=== PATIENT | male | born 1955 | race Caucasian/White ===

== ENCOUNTER 2018-12-15 11:08 | Inpatient (IN) ==
[2018-12-15] MEDS ORDERED: DOPAMINE 800 MG/D5W 800 MG/250 ML IV.SOLN ONE (11:26)
[2018-12-15] MEDS ORDERED: ASPIRIN PR ONE (11:29)
[2018-12-15] MEDS ORDERED: DOPAMINE 800 MG/D5W 800 MG/250 ML IV.SOLN IV SCH ×2 (11:30→11:45)
[2018-12-15 11:34] LABS: BLOOD TYPE ARTERIAL; SAMPLE BLOOD
[2018-12-15 11:35] LABS: BE -9.5 mmoll (-3.0-3.0); METHB 0.7 % (0.0-1.5); O2(CT) 17.4 mL/dL (15.0-23.0); O2HB 97.9 % (95.0-99.0); PCO2(98.6) 65 mmHg (35-45); PO2(98.6) 355 mmHg (60-100); SAO2 100.2 % (95.0-100.0)
[2018-12-15 11:36] LABS: ALLEN TEST YES; MODALITY AMBU BAG
[2018-12-15 11:37] LABS: pH(98.6) 7.11 (7.35-7.45)
[2018-12-15 11:38] LABS: HCO3-(ACT) 17.5 mmoll (20.0-26.0)
[2018-12-15 11:39] LABS: BASO# 0.04 X1000 (0.0-0.2); BASO% 0.4 % (0.0-0.8); EOS# 0.24 X1000 (0.0-0.7); EOS% 2.6 % (0.0-10.0); HEMATOCRIT 40.8 % (42.0-52.0); HEMOGLOBIN 12.9 g/dL (14.0-18.0); IMM GRAN# 0.37 X1000 (0.0-0.04); LYMPH# 5.36 X1000 (1.2-3.4); LYMPH% 58.3 % (20.5-51.1); MCH 29.7 PG (27-31); MCHC 31.6 g/dL (33-37); MCV 93.8 FL (81-99); MONO# 0.49 X1000 (0.11-0.59); MONO% 5.3 % (1.7-9.3); MPV 10.5 FL (7.4-10.4); NEUT% 29.4 % (42.2-75.2); PLT 251 X1000 (130-400); RBC 4.35 XMIL (4.7-6.1); RDW 13.4 % (11.5-14.5)
[2018-12-15 11:48] LABS: INR 1.2; PROTIME 15.8 Seconds (11.0-16.0)
[2018-12-15 11:51] LABS: ALBUMIN 3.8 g/dL (3.5-5.0); CALCIUM 8.6 mg/dL (8.8-10.2); CREATININE 1.3 mg/dL (0.7-1.2); TOTAL BILIRUBIN 0.3 mg/dL (0.20-1.00); TOTAL PROTEIN 7.1 g/dL (6.3-8.3)
--- NOTE | 2018-12-15 13:05 | Diag Imaging Result Doc PS360 ---
EXAM: CHEST-PORTABLE HISTORY: arrest TECHNIQUE: Chest single view COMPARISON: 04/13/2018 FINDINGS: The lungs are well expanded. There are increased interstitial markings throughout both lungs believed to be fibrosis. However, these are more prominent than on the prior study. No cardiomegaly. Endotracheal tube in good position. No pleural effusions identified. IMPRESSION: 1.Endotracheal tube in good position with the tip 4 cm above the chanel 2.Pulmonary fibrosis. There has either been interval worsening or there are small underlying infiltrates. Electronically signed by Cezar Mac 12/15/2018 1:03 PM
--- NOTE | 2018-12-15 13:41 | EKG Report ---
Test Performed on : 12/15/2018 11:15:00 AM Test Reason : full arrest Blood Pressure : / mmHG Vent. Rate : 149 BPM Atrial Rate : 150 BPM P-R Int : 000 ms QRS Dur : 094 ms QT Int : 298 ms P-R-T Axes : 000 -56 071 degrees QTc Int : 469 ms Atrial fibrillation. with rapid ventricular response. Left axis deviation Nonspecific ST and T wave abnormality Abnormal ECG No previous ECGs available Unconfirmed Result
[2018-12-15 13:44] LABS: BE -3.1 mmoll (-3.0-3.0); BLOOD TYPE ARTERIAL; HCO3-(ACT) 22.5 mmoll (20.0-26.0); METHB 0.9 % (0.0-1.5); O2(CT) 18.7 mL/dL (15.0-23.0); O2HB 96.4 % (95.0-99.0); PCO2(98.6) 50 mmHg (35-45); PO2(98.6) 117 mmHg (60-100); SAMPLE BLOOD; SAO2 99.1 % (95.0-100.0); SRATE 12 BPM; THB 13.7 g/dL (11.5-17.4); TVOL 500 mL; pH(98.6) 7.29 (7.35-7.45)
[2018-12-15 14:03] LABS: ALLEN TEST YES; MODALITY VENTILATOR
[2018-12-15] MEDS ORDERED: NS 1,000 ML IV ONE (14:10)
--- NOTE | 2018-12-15 14:13 | PROVIDER DOCUMENTATION ---
This chart was entered by Franca Lopez Scribe, acting as scribe for Daniel River MD. HPI-Cardiopulmonary Arrest - General Chief Complaint: Full Arrest Stated Complaint: Full Arrest Time Seen by Provider: 12/15/18 11:08 Source: family, EMS Allergies/Adverse Reactions: Allergies Allergy/AdvReac Type Severity Reaction Status Date / Time No Known Allergies Allergy Verified 12/15/18 12:23 Home Medications: Home Medication List Medication Instructions Recorded Confirmed Last Taken Type Buprenorphine HCl/Naloxone HCl 1 each SL BID 08/30/17 12/17/18 Unknown History [Suboxone 8 mg/2 mg Sl Film] Chlordiazepoxide [Librium] 10 mg PO Q8H PRN PRN 08/30/17 12/17/18 Unknown History Citalopram [Celexa] 20 mg PO QAM 08/30/17 12/17/18 Unknown History Apixaban [Eliquis] 5 mg PO BID 12/17/18 12/17/18 Unknown History Atorvastatin Calcium 20 mg PO QHS 12/17/18 12/17/18 Unknown History Carvedilol [Coreg] 3.125 mg PO BID 12/17/18 12/17/18 Unknown History Levothyroxine Sodium [Synthroid] 50 microgm PO DAILY 12/17/18 12/17/18 Unknown History Losartan Potassium 100 mg PO DAILY 12/17/18 12/17/18 Unknown History Montelukast Sodium 10 mg PO DAILY 12/17/18 12/17/18 Unknown History - History of Present Illness-C/P Arrest Initial Comments: 63 y/o male presents to ED with cardiac arrest. Family of pt found him down and started bystander CPR. EMS reports they shocked him once, placed an IO and grisel airway, and gave epi and atropine en route to ED. EMS states they got a pulse back several times, but lost it. EMS reports down time of approximately 30 mins upon ED arrival. EMS states he was supposed to see Dr. Shabazz next week for cardiac workup. Pt has hx [place]. Pt unresponsive with CPR via MITCHELL in progress on arrival. Onset: 30 mins [employer] Reason for Code Blue?: full arrest Witnessed arrest?: Yes Noted by:: family Bystander CPR?: Yes CPR initiated before doctor arrival?: Yes Down-time before ACLS?: unknown Initial Findings: unresponsive, no pulse Treatment initiated prior to doctor arrival?: Initiated CPR/thumper, Initiated defibrillated, Initiated IV fluids, Initiated epinephrine #mg, Initiated atropine #mg, Initiated other (grisel airway) Similar Symptoms Previously?: No Recently seen or treated by another doctor?: No - Pre-hospital Treatment EMS Initial Findings:: unresponsive Pre-hospital Treatment: Initiated CPR, Initiated IV fluids, Initiated epinephrine, Initiated atropine, Initiated other (grisel airway) Review of Systems - Adult - REVIEW OF SYSTEMS - ADULT ROS:: unobtainable per condition (full arrest) Constitutional: reports: see HPI Past History - Adult - PAST MEDICAL HISTORY-ADULT Review of Records: reports: Old Records Reviewed, Nursing Assessment Review, Medications Reviewed Major Childhood Illnesses: reports: denies history Cardiovascular: reports: HTN, [place] - PRIOR SURGERIES/PROCEDURES Surgical/Procedure History: reports: none - IMMUNIZATION STATUS Childhood Immunizations: See Nurse Assessment Flu Vaccine: See Nurse Assessment - FAMILY HISTORY Family History: reviewed, not pertinent - SOCIAL HISTORY Smoking: quit less than 1 year Substance Use: none/never Alcohol Use Frequency: never Living Situation: family Physical Exam-General - PHYSICAL EXAM-ADULT Initial Vital Signs Reviewed: Yes - CONSTITUTIONAL General Appearance: other (unresponsive with CPR in progress) - EYES Eyes: PERRL/EOMI, pink conjunctivae, other (5 mm pupils bilaterally) - HEAD, EARS, NOSE, MOUTH & THROAT HENMT: normocephalic/atraumatic, moist mucous membranes - CARDIOVASCULAR Cardiovascular: negative: normal peripheral pulses (no pulse) - SKIN Integumentary: normal color, warm/dry - NEUROLOGIC Neurologic: other (unresponsive with CPR in progress) - PSYCHIATRIC Psych/Mental Status: other (unresponsive with CPR in progress) Progress - PLAN OF CARE/RESULTS Progress/Plan/Lab Results: Orders Category Date Time Status Admit [facility] Routine AdmDCTranf 12/15/18 17:12 Active Activity - Strict Bedrest ORDERED Care 12/15/18 17:12 Active Apply Mechanical Device [QM] ORDERED Care 12/15/18 17:12 Active Cardiac Monitoring DIRECTED Care 12/15/18 11:30 Completed FSBS/Accucheck Result AC + HS Care 12/17/18 09:11 Active Intake and Output-Strict ORDERED Care 12/15/18 17:12 Active Nursing- MD Consult Request ROUTINE Care 12/15/18 14:07 Completed Nursing- MD Consult Request ROUTINE Care 12/15/18 14:09 Completed Oxygen Therapy- ED Nursing DIRECTED Care 12/15/18 11:30 Completed Resuscitation Status Routine Care 12/15/18 14:11 Ordered Saline Loc NOW Care 12/15/18 11:30 Completed Update & Confirm Home Medicati ROUTINE Care 12/15/18 14:18 Completed Vital Signs Order Q 4-HR ASSESS Care 12/15/18 17:12 Active Z-Document. for Tele Applied ORDERED Care 12/15/18 17:12 Completed MD [Physician/Provider Consults] Routine Cons 12/15/18 14:05 Ordered MD [Physician/Provider Consults] Routine Cons 12/15/18 14:08 Ordered Social Service Consult Routine Cons 12/15/18 17:12 Active NPO Diet 12/15/18 17:12 Active CHEST-PORTABLE [RAD] Routine Exams 12/16/18 06:00 Completed CHEST-PORTABLE [RAD] Stat Exams 12/15/18 11:40 Completed A1C HGB W EST AVG GLUCOSE [CHEM] Stat Lab 12/15/18 11:15 Completed ABG [RESP] Routine Lab 12/15/18 11:15 Completed ABG [RESP] Routine Lab 12/15/18 13:24 Completed BLOOD CULTURE [BLDCUL] Stat Lab 12/15/18 15:37 Completed CBC WITH ELECTRONIC DIFF [HEME] Stat Lab 12/15/18 11:15 Completed CK PROFILE [SP CHEM] Stat Lab 12/15/18 11:15 Completed COMPREHENSIVE METABOLIC PANEL [CHEM] Stat Lab 12/15/18 11:15 Completed HEPATITIS PROFILE [HH] Stat Lab 12/15/18 11:15 Completed LACTATE, PLASMA [CHEM] Stat Lab 12/15/18 15:37 Completed MAGNESIUM [CHEM] Stat Lab 12/15/18 11:15 Completed PRO B-NATRIURETIC PEPTIDE Stat Lab 12/15/18 11:15 Completed PROTIME WITH INR [COAG] Stat Lab 12/15/18 11:15 Completed PTT [COAG] Stat Lab 12/15/18 11:15 Completed SPUTUM CULTURE WITH GRAM STAIN [RM] Routine Lab 12/15/18 17:25 Completed TROPONIN T Stat Lab 12/15/18 11:15 Completed TSH Stat Lab 12/15/18 11:15 Completed 0.9% Sodium Chloride Inj [Ns] 1,000 ml Med 12/15/18 14:10 Discontinued IV 100 mls/hr Albuterol 2.5MG/Ipratrop 0.5MG [Duoneb (A & A)] Med 12/15/18 15:30 Discontinued 3 ml INH RTQ4H Aspirin Med 12/15/18 11:29 Discontinued 300 mg HI NOW ONE Budesonide [Pulmicort] Med 12/15/18 19:30 Discontinued 0.5 mg INH RTBID Dopamine 800 mg/D5w Med 12/15/18 11:26 Discontinued 800 mg in 250 ml .ROUTE As directed Dopamine 800 mg/D5w Med 12/15/18 11:30 Discontinued 800 mg in 250 ml IV As Directed mls/hr Dopamine 800 mg/D5w Med 12/15/18 11:45 Discontinued 800 mg in 250 ml IV As Directed mls/hr Insulin Human Regular ([place] [Humulin R ([place])] Med 12/15/18 17:00 Discontinued See Protocol SUBQ Q4H Methylprednisolone Sod Succ [Solu-Medrol] Med 12/15/18 14:56 Discontinued 125 mg IV NOW ONE Methylprednisolone Sod Succ [Solu-Medrol] Med 12/15/18 23:00 Discontinued 40 mg IV Q8H Ondansetron [Zofran] Med 12/15/18 14:17 Discontinued 4 mg IV Q4H PRN PRN Pharmacy Order [Vancomycin IV Per Pharmacy] Med 12/15/18 15:00 Discontinued 1 each MISC DIRECTED Piperacillin/Tazobactam [Zosyn] 3.375 gm Med 12/15/18 15:00 Discontinued 0.9% Sodium Chloride Inj [Ns] 50 ml IV Q6H Propofol [Diprivan 1%] Med 12/15/18 14:30 Discontinued 1,000 mg in 100 ml IV As Directed mls/hr Vancomycin 1,500 mg Med 12/16/18 16:00 Discontinued 0.9% Sodium Chloride Inj [Ns] 250 ml IV Q24H Vancomycin 2,000 mg Med 12/15/18 16:00 Discontinued 0.9% Sodium Chloride Inj [Ns] 500 ml IV NOW Aerosol Treatments Routine Ot 12/15/18 14:17 Completed Pulse Oximetry Routine Oth 12/15/18 17:12 Completed Telemetry [OM.EQ] Routine Oth 12/15/18 17:12 Active Ventilator Order Stat Oth 12/15/18 11:24 Active EKG [EKG] Routine Ther 12/16/18 08:00 Completed EKG [EKG] Stat Ther 12/15/18 11:30 Draft Transfer/Admit Order [TRANSFER] Routine Transfer 12/15/18 14:10 Completed Epi pushed at 11:11. Pulse detected at 11:11. HR 120 and blood pressure 108/66. 11:15- HR 150 and blood pressure 192/119. 11:19- HR 114 and blood pressure 115/88. Successful intubation at 11:23. 11:27 HR 112 and blood pressure 74/44. 11:54 HR 105 and blood pressure 99/53. Dr. River spoke to Dr. Meade again at 13:55. [place] has determined he should be admitted at [facility]. Dr. River spoke to Dr. William again at 14:02. The pt will be admitted at [facility]. Result Diagrams: 12/21/18 04:10 12/21/18 04:10 - EKG 1 Time of EKG reading by physician:: 11:15 EKG Read and Signed by:: Daniel River EKG Interpretation (*Must complete 3 of following elements*): Abnormal Rate: 149 Rhythm: A fib with RVR [place]: left QRS: normal HI Interval: normal ST Wave: non-specific ST changes - XRAY 1 XRAY Study: Chest Impression: See EMR Report ([facility] - [address] , [address] [place] [id number] [facility] - [address] [place] [address] Department of Imaging Patient: CAROLANN WOODRUFFDM Date: 12/15/18MR#: [id number] : 5ADM Status: [facility]#: [id number] Age/Sex: 63/MRoom/Bed: Loc: P.ED Ordering Physician: Chepe River MD Family Physician: None,PCP Reason for Procedure: arrest Signed EXAM: CHEST-PORTABLE HISTORY: arrest TECHNIQUE: Chest single view COMPARISON: 04/13/2018 FINDINGS: The lungs are well expanded. There are increased interstitial markings throughout both lungs believed to be fibrosis. However, these are more prominent than on the prior study. No cardiomegaly. Endotracheal tube in good position. No pleural effusions identified. IMPRESSION: 1.Endotracheal tube in good position with the tip 4 cm above the chanel 2.Pulmonary fibrosis. There has either been interval worsening or there are small underlying infiltrates. Electronically signed by Cezar Mac 12/15/2018 1:03 PM 12/15/18 1303 Interpreting Physician: Cezar Mac MD Dictated Date/Time: 12/15/18 1302 cc: Daniel River MD; None,PCP) - CONSULTS/PCP/HOSPITALIST Notification #1 *Consult/PCP/Hospitalist*: Dr. Meade Time Discussed: 12:05 Reason/Comments: Cardiac arrest Consult Disposition: Admit (to [facility]) #2 Consult: Dr. William Time Discussed: 12:30 Reason/Comments: Cardiac arrest Consult Disposition: Admit #3 Consult: Transfer Center Time Discussed: 12:47 Reason/Comments: Cardiac arrest Consult Disposition: other (Hospitalist will call back) Procedures - INTUBATION Time of Intubation: 11:23 Airway Evaluation: Large/Loose Teeth Intubation Method: orotracheal Equipment: ETT, Glidescope Tube Size (cm): 7.5 Pretreated with 100% Oxygen?: Yes Breath Sounds after Intubation: equal ETT Primary Tube Confirmation: Capnometry CO2 Change, Direct Visualization, Chest Rise and Fall, Tube placement verified on XRAY Intubation Complications: no complications Vent Settings: See Respiratory Therapy Notes Procedure Comment: 23 cm at the teeth. Departure - Departure Date of Disposition Decision: 12/15/18 Time of Disposition Decision: 13:57 DIAGNOSIS: Cardiac arrest Disposition: ADMITTED INPATIENT 09 Certified Medical Emergency: Emergent Condition: Serious - Critical Care Note This patient required my direct & personal management of CC.: Yes Total Time (mins): 120 Critical Care Statement: This patient required my direct personal management to treat or rule out processes, the absence of which, could potentiallly result in sudden, clinically significant life or limb threatening deterioration. Attestation - Physician/ GUERLINE Attestation Patient care was provided by Advanced Practice Provider:: No The physician spent face to face time with patient:: Yes Advanced Practice Provider documentation review:: Supervising physician onsite and consulted in the evaluation and care of this patient. The physician did have a face to face encounter with the patient. This chart was documented by the indicated scribe, (Franca Lopez, Dorys) and accurately reflects the services I performed and decisions made by me, Daniel River MD, as attested by the provider's signature.
[2018-12-15] MEDS ORDERED: ZOFRAN IV PRN ×2 (14:17→15:37)
[2018-12-15] MEDS ORDERED: DIPRIVAN 1% 1,000 MG/100 ML BOTTLE IV SCH ×2 (14:30→16:00)
[2018-12-15] MEDS ORDERED: SOLU-MEDROL IV ONE (14:56)
[2018-12-15] MEDS ORDERED: ZOSYN 3.375 GM in NS 50 ML IV SCH ×2 (15:00→16:00)
[2018-12-15] MEDS ORDERED: VANCOMYCIN IV PER PHARMACY MISC SCH (15:00)
[2018-12-15] MEDS ORDERED: DUONEB (A & A) INH SCH ×2 (15:30→19:30)
[2018-12-15] MEDS ORDERED: HUMULIN R SUBQ SCH (15:45)
[2018-12-15] MEDS ORDERED: VANCOMYCIN 2,000 MG in NS 500 ML IV ONE (16:00)
[2018-12-15] MEDS ORDERED: CORDARONE 360 MG/D5W 360 MG/200 ML IV.SOLN IV ONE (16:16)
[2018-12-15] MEDS ORDERED: HUMULIN R (PARKWAY) SUBQ SCH (17:00)
--- NOTE | 2018-12-15 17:41 | CARDIOLOGY CONSULTATION ---
DATE: 12/15/2018 CHIEF COMPLAINT ON PRESENTATION: Patient found down in cardiac arrest at home. HISTORY OF PRESENT ILLNESS: Mr. Meraz is a 63-year-old white male with an apparent previous history of an kov-wn-wmgzshsw cardiac arrest and Takotsubo cardiomyopathy with normalization of his ejection fraction in the interim. He presented after EMS found him at home. He was found to be in atrial fibrillation and was defibrillated with conversion, but now appears to be again in atrial fibrillation at present. The patient has been ultimately intubated and is currently on pressors. He does not respond to verbal or physical stimuli. No family is available at bedside for history. PAST MEDICAL HISTORY: 1. Significant for hypertension. 2. Apparent history of substance abuse in the form of possible narcotics as well as alcohol. Again, this report is from chart review. 3. Hypertension. 4. Takotsubo cardiomyopathy with previous tgf-zv-fffpueik cardiac arrest in August 2017. At that time, he had a cardiac catheterization demonstrating minimal luminal irregularities in his coronaries. He initially had a ejection fraction in the 30% range, but prior to discharge it had recovered into the 65% range. SOCIAL AND FAMILY HISTORY: Unable to be obtained secondary to the patient currently being on the ventilator. REVIEW OF SYSTEMS: Unable to be obtained secondary to the patient currently being on the ventilator. PHYSICAL EXAMINATION: Vitals: The patient is afebrile. His heart rate is in the 110s to 120s predominantly. He appears to be in atrial fibrillation based on the monitor. His blood pressure is 98/62. Generally: He is on the ventilator. He is not responsive to physical or verbal stimuli. HEENT: Oropharynx is moist. He has poor dentition. His eye examination shows pink conjunctivae. White sclerae. Cardiovascular: He sounds to be in a tachycardic and irregular rhythm. He has no obvious murmurs. He has no S3. He has no lower extremity edema. His extremities are warm and well perfused. His chest exam has mechanical breath sounds heard throughout all lung golden. He is not breathing above the ventilator. Abdomen: Soft, nontender. He has a midline upper abdominal ventral hernia that is easily reducible. Skin: Warm and dry throughout. Neurological: He appears to have a doll's-eye-type reflex present. He is not responding to verbal or physical stimuli. Again, he is intubated. DATA: Again, his wry-ek-zohyaeam EKGs demonstrated atrial fibrillation on presentation on the monitor, which was then shocked into what appeared to be a wide-complex bradycardic rhythm with no obvious atrial activity. Since that time, his initial EKG on presentation here demonstrates a narrow-complex atrial fibrillation, rate of 149 beats per minute. Those were reviewed by me. His chest x-ray shows pulmonary fibrosis. His laboratory data demonstrates a white count of 9.2, hematocrit of 40, platelet count of 251. His initial ABG demonstrated a pH of 7.11, pCO2 of 65, pO2 of 355, lactate 5.4. Subsequently that has recovered to a pH of 7.29, pCO2 of 50, pO2 of 117. His sodium is 138, potassium 5, BUN 17, creatinine 1.3. His proBNP is 569. Normal troponin. His AST and ALT are 245 and 215 respectively with a normal TSH. ASSESSMENT: Mr. Meraz is a 63-year-old gentleman with a history of cko-jy-cvsgnzyn cardiac arrest who has had that issue previously with a previous diagnosis of a Takotsubo cardiomyopathy, with interim recovery of ejection fraction. He presented again with an bfe-hs-jpglarfn cardiac arrest. PLAN: Supportive care at this time, including pressors to maintain his blood pressure. He is on amiodarone at home. We will plan on initiating an amiodarone infusion. He previously had been arranged for a LifeVest as an outpatient at the time of his last hospitalization in August 2017. I do not have any data currently about the interim discussions regarding a potential defibrillator. Presently, I would plan on trending his cardiac enzymes, although given his previous events, I do not think this was a ischemic event. Certainly he needs a secondary prevention device at this time, and will likely plan on doing that prior to discharge. If the patient recovers, we will try to initiate oral medications in the form of beta-blockers. In addition, we will plan on checking an echo. cc: Zia Meade MD
[2018-12-15 17:43] LABS: URINE SOURCE CATH
[2018-12-15 17:47] LABS: BILIRUBIN URINE NEGATIVE (NEGATIVE); BLOOD URINE MODERATE (NEGATIVE); COLOR ORANGE; GLUCOSE URINE NEGATIVE (NEGATIVE); KETONE URINE NEGATIVE (NEGATIVE); LEUKOCYTES URINE NEGATIVE (NEGATIVE); NITRITE URINE NEGATIVE (NEGATIVE); PH URINE 5.5; PROTEIN URINE 100 mg/dL (NEGATIVE); SP GRAVITY URINE 1.017; TURBIDITY URINE TURBID (CLEAR); UROBILINOGEN URINE NORMAL (NORMAL)
--- NOTE | 2018-12-15 17:50 | Diag Imaging Result Doc PS360 ---
EXAM: CT HEAD W/O CONTRAST HISTORY: post code TECHNIQUE: CT head without contrast COMPARISON: 08/30/2017 FINDINGS: No parenchymal hemorrhage. No epidural or subdural hematoma. No subarachnoid hemorrhage. No mass identified on this noncontrasted exam. No hydrocephalus. There is a small amount of mucus in the ethmoid, maxillary, and sphenoid sinuses. There are endotracheal and nasogastric tubes. IMPRESSION: No hemorrhage. Negative brain CT without contrast. This exam was performed using automated exposure control, adjustment of mA or kV according to patient size, and/or use of iterative reconstruction technique. Electronically signed by Cezar Mac 12/15/2018 5:48 PM
[2018-12-15 17:53] LABS: UR EPITHELIAL CELLS >10 /HPF (<10); URINE BACTERIA NEGATIVE /HPF; URINE RBC 20-40 /HPF (<10); URINE WBC TNTC /HPF (<10)
[2018-12-15] MEDS ORDERED: NS 500 ML IV PRN (17:55)
[2018-12-15] MEDS ORDERED: TYLENOL PR PRN (17:55)
[2018-12-15] MEDS ORDERED: POTASSIUM CHLORIDE 60 MEQ in NS 500 ML IV PRN (18:00)
[2018-12-15] MEDS ORDERED: NITROGLYCERIN 50 MG/D5W 50 MG/250 ML IV.SOLN IV SCH ×2 (18:00→21:45)
[2018-12-15] MEDS ORDERED: DOPAMINE 800 MG/D5W 800 MG/500 ML IV.SOLN IV SCH (18:00)
[2018-12-15] MEDS ORDERED: MAGNESIUM SULFATE 2 GM in STERILE WATER INJ. 50 ML IV PRN (18:00)
[2018-12-15] MEDS ORDERED: POTASSIUM CHLORIDE 40 MEQ in NS 250 ML IV PRN (18:00)
[2018-12-15] MEDS ORDERED: FENTANYL IV ONE (18:00)
[2018-12-15] MEDS ORDERED: SODIUM PHOSPHATE 20 MMOL in NS 250 ML IV PRN (18:00)
[2018-12-15] MEDS ORDERED: SODIUM PHOSPHATE 10 MMOL in NS 250 ML IV PRN (18:00)
[2018-12-15 18:07] LABS: URINE CASTS GRANULAR PRESENT; URINE CRYSTALS NONE SEEN; URINE SMALL ROUND CELLS NONE SEEN; URINE YEAST PRESENT
[2018-12-15] MEDS: FENTANYL 1,000 MICROGM in NS 80 ML IV SCH (18:20)
[2018-12-15] MEDS: NIMBEX 80 MG in NS 160 ML IV SCH (18:28)
[2018-12-15] MEDS ORDERED: LEVOPHED 8 MG in D5 1/2 NS 250 ML IV SCH (18:30)
[2018-12-15] MEDS ORDERED: HUMULIN R IV ONE (18:30)
[2018-12-15] MEDS: ATIVAN IV SCH ×2 (18:30→21:44)
[2018-12-15] MEDS: PEPCID IV SCH (18:30)
[2018-12-15] MEDS ORDERED: D50W SYRINGE IV SCH (18:30)
[2018-12-15] MEDS: ZOSYN 3.375 GM in NS 50 ML IV SCH (18:30)
--- NOTE | 2018-12-15 18:31 | HISTORY AND PHYSICAL ---
HISTORY OF PRESENT ILLNESS: Apparently, he was talking to his sister and then he just lost consciousness, eyes rolled back, had difficulty breathing, and went into cardiac arrest. His sister did CPR until the paramedics came. I think he was down about 30 minutes. Paramedics came and they gave him 1 epinephrine and 1 atropine. He was intubated and resumed atrial fibrillation with rapid ventricular rate. Past medical history of cardiac arrhythmias. Apparently, by report, he had a cardiac arrest last year. PAST MEDICAL HISTORY: 1. Previous history of cardiac arrhythmias. 2. Hypertension. FAMILY HISTORY: Remarkable for mother demised with breast cancer at very young age. Father also demised at 52 years, had lung cancer. Nobody in the family seemed to have issues with heart problems. ALLERGIES: None known. SOCIAL HISTORY: Lives alone, was very self-sufficient, takes care of himself. Smokes a pack a day for over a [id number]-[id number] history. REVIEW OF SYSTEMS: Unable to elicit. According to family, no weight gain or loss. No fever or chills.HEENT: Unremarkable. Respiratory: No increased work of breathing or dyspnea. Cardiovascular: He has not had any recent chest pain. He was taking Suboxone at one time under [facility]. He has a history of ventricular fibrillation. The last time August 2017, he was unresponsive, CPR initiated, he had ventricular fibrillation, Emergency found to be in atrial fibrillation. At that time, he was extubated. He thought he had a pre-existing cardiomyopathy. He has an echocardiogram that was done in August 2017: 1. Mild mitral regurgitation, mild tricuspid regurgitation. 2. Pulmonary hypertension. 3. Estimated left ejection fraction 65%, without wall motion abnormalities at that time. 4. Mild left atrial enlargement. Cardiology had seen him back in December. He has a history of outpatient cardiac arrest, previous diagnosis of takotsubo cardiomyopathy with recovery in ejection fraction. He previously had been arranged for a Life Vest as an outpatient. He had a heart catheterization in August 2017, relatively low left ventricular end-diastolic pressure at that time, right dominant coronary artery described with mild luminal irregularities, no significant coronary obstruction. So, felt he had nonischemic cardiomyopathy. PHYSICAL EXAMINATION: GENERAL: He is intubated and sedated. VITAL SIGNS: Temperature is 96.1 degrees, pulse 119, respirations 32, blood pressure 100/76. EYES: Pupils are equal and round. LUNGS: Clear in all lung golden. NECK: No distended neck veins. CARDIOVASCULAR: Regular rhythm and rate without murmur or S3. ABDOMEN: Soft. SKIN: Warm and dry. EXTREMITIES: No pedal edema. LABORATORY AND DIAGNOSTIC DATA: White count 9200, hematocrit is 40, platelet count is 251,000. Sodium 138, potassium 5.0, chloride 99, BUN 17, creatinine 1.3, AST is 245, ALT is 215, calcium of 8.6, albumin of 3.8. ProTime is 15.8. Urinalysis unremarkable. Blood gas on arrival to the emergency room, pH was 7.29, pCO2 of 50, PO2 of 115, O2 saturation was 99%. This was after he was intubated and on the ventilator, 40% FiO2, PEEP of 5. Chest x-ray, endotracheal tube in good position, pulmonary fibrosis, there has been interval worsening since previous x-ray, which was 04/13/2018. Head CT without contrast, no hemorrhage, negative brain CT. ASSESSMENT AND PLAN: Cardiac arrest. History of nonischemic cardiomyopathy in the past. There is a questionable history of whether he has had ventricular tachycardia in the past. He has had a history of what they were treating for takotsubo cardiomyopathy. Last echocardiogram was on 09/08/2017. At that time, he had normal left ventricular function. We will check cardiac enzymes. I think we need to get a urine toxicology test. We will check serial CKs and troponin. We will check his thyroid and cortisol level, B12 and folate. Present rhythm is atrial fibrillation with rapid rate. His electrolytes are fairly unremarkable. Note that transaminases were a little elevated. We will put him on hypothermia protocol, ask Cardiology and Pulmonary to help follow along. Right now, he is on a dopamine drip and we will give him normal saline. He is on an amiodarone drip and we covered him empirically with some antibiotics, although he does not appear to have sepsis. cc: Jc Recinos MD
[2018-12-15] MEDS: LOVENOX SUBQ SCH (18:32)
[2018-12-15] MEDS: SODIUM CHLORIDE 0.9% INJ SCH (18:34)
[2018-12-15] MEDS: HUMULIN R 100 UNIT in NS 100 ML IV SCH (18:45)
[2018-12-15] MEDS: LACRI-LUBE OPH OINT BOTH EYES SCH (18:53)
[2018-12-15 19:04] LABS: UR AMPHETAMINES QUAL NONE DETECTED (NONE DETECT); UR BARBITUATES QUAL NONE DETECTED (NONE DETECT); UR BENZODIAZEPIN QUAL PRESUMPTIVE POSITIVE (NONE DETECT); UR CANNABINOIDS QUAL NONE DETECTED (NONE DETECT); UR COCAINE QUAL NONE DETECTED (NONE DETECT); UR METHADONE QUAL NONE DETECTED (NONE DETECT); UR OPIATES QUAL NONE DETECTED (NONE DETECT); UR OXYCODONE QUAL NONE DETECTED (NONE DETECT); UR PCP QUAL NONE DETECTED (NONE DETECT)
[2018-12-15 19:13] LABS: FREE T4 1.66 ng/dL (0.93-1.70); TSH 0.71 uIUmL (0.27-4.20)
--- NOTE | 2018-12-15 19:13 | Diag Imaging Result Doc PS360 ---
EXAM: CHEST-1 VIEW HISTORY: ETT placement TECHNIQUE: Portable chest single view COMPARISON: 12:05 PM FINDINGS: Endotracheal tube is unchanged and remains in good position. There is currently a nasogastric tube with the tip near the gastroesophageal junction. It should be advanced several centimeters. Interstitial markings in the lungs are slightly less pronounced. IMPRESSION: 1.Endotracheal tube remains in good position 2.Nasogastric tube near the gastroesophageal junction. This should be advanced. Electronically signed by Cezar Mac 12/15/2018 7:10 PM
--- NOTE | 2018-12-15 19:27 | HISTORY AND PHYSICAL ---
PRIMARY CARE PROVIDER: [facility]. HISTORY OF PRESENT ILLNESS: Mr. Moreno Meraz is a 63-year-old male with a medical history of having cardiac arrest August 2017. Also history of atrial fibrillation, hypertension, tobacco abuse, alcohol dependence, and chronic pain syndrome treatment with a history of suspected ventricular arrhythmia and nonischemic cardiomyopathy. He is now here after experiencing cardiac arrest once again. Apparently, his sister was in front of him while he was by his vehicle. He looked funny. He passed out. She could not wake him and 911 was called. There was at least 20 minutes of CPR, including non CPR time frame. Neurologically, he is withdrawing to pain, but essentially unresponsive otherwise. His pupils are equal and reactive. He has a gag. He is in atrial fibrillation with RVR. Rates 1 teens. Blood pressure stable on dopamine that was started in the ER. We are reviewing his last admission. He was advised to remain hospitalized over the weekend until he got a LifeVest, but apparently I do not think this happened. I do not think he was able to get a LifeVest. Cardiology, Dr. Meade, is already aware of the patient. [facility] currently is refusing the patient, and we will transfer to [facility]. PAST MEDICAL HISTORY: 1. Paroxysmal atrial fibrillation. 2. Nonischemic cardiomyopathy with an ejection fraction of 20%. 3. Hypertension. 4. Chronic pain syndrome. He used to be on Suboxone. SURGICAL HISTORY: Unknown. SOCIAL HISTORY: Obtained from old medical records. Apparently, he lives by himself. He was self sufficient. He takes care of himself. Smokes about a pack a day for at least 30 years or plus. He has a daughter who does not live with him. He has a sister who checks on him on a regular basis. FAMILY HISTORY: Also obtained from old medical records is remarkable for mother's with breast cancer at a young age. Father at 52 with lung cancer. ALLERGIES: No known drug allergies. HOME MEDICATIONS: Not verified, but what is listed from 2018 is Librium, Celexa, Suboxone, aspirin, amiodarone, digoxin, Diovan, potassium chloride, Lasix, and metoprolol. REVIEW OF SYSTEMS: Unable to obtain. PHYSICAL EXAMINATION: VITAL SIGNS: Temperature 96.2 degrees, heart rate 119, respiratory rate was in the 40s on mechanical ventilation, blood pressure is 98/62, and O2 saturation 100% again on mechanical ventilation. GENERAL: Mr. Moreno Meraz is a 63-year-old male. He is unresponsive at this time. NECK: Trachea midline. HEENT: Atraumatic, normocephalic. Pupils are equal and reactive, but they are rolled back in his head. Sclerae is red and irritated from being dry. He is orally intubated with equal expansion of the chest on mechanical ventilation and oropharyngeal area is dry. CARDIOVASCULAR: Irregularly irregular. Tachycardic rate and rhythm. No rubs, gallops, or murmurs. Trace lower extremity edema. Plus 2 dorsalis and radial pulses. Unable to assess for JVD. He is completely flat. Negative for carotid bruits. PULMONARY: Coarse throughout. Decreased in the bases. Mechanically ventilated. Trying to breathe over the ventilator. O2 saturations 100%. GASTROINTESTINAL: Left nare NG tube to low intermittent suction. There are at least 300+ gastric secretions that are glass to brown in color. No signs of bleeding on that. It is to low suction. He has got positive bowel sounds x4. It is nondistended. EXTREMITIES: Withdraws to pain. Unable to assess for strength or range of motion. NEUROLOGIC: Unresponsive. Pupils are equal and reactive, but eyes are rolled back in head. He is unable to follow commands as he is unresponsive. There is a positive gag, positive corneal reflex, and withdraws to pain. SKIN: Warm, dry, intact. LABORATORY DATA: White blood cells 9000, hemoglobin 12, hematocrit 40, platelet count 251,000. INR is 1.20. PTT is 37. ABGs: First set prior to intubation: pH 7.11, pCO2 of 65, pO2 of 355, bicarb 17, base excess -9.5 with a sat of 97%. Lactate was up to 5.4. A repeat after ventilation is pH 7.29, pCO2 is 50, pO2 is 117, bicarb 22, base excess -3, saturation 96% with a lactate of 1.4. This is on mechanical ventilation mode AC, rate of 12, 40% tidal volume 500, PEEP of 5. Sodium 138, potassium 5.0, BUN 17, creatinine is 1.3, glucose 250, calcium 8.6, magnesium 2.6, bilirubin 0.30, AST 245. CK is 109. Troponin less than 0.01. ProBNP is 569. Albumin 3.8. TSH 2.97. IMAGING: Chest x-ray: Endotracheal tube in good position with tip 4 cm above the chanel. Pulmonary fibrosis has worsened and there are small underlying infiltrates. EKG: Atrial fibrillation with a RVR rate of 149. ASSESSMENT AND PLAN: 1. Cardiac arrest with history of nonischemic cardiomyopathy and atrial fibrillation with rapid ventricular response along with a history of ventricular arrhythmia and history of cardiac arrest August 2017. At that time was advised to have a LifeVest placed so he could have a defibrillator, but this never happened. Now he is presenting with cardiac arrest once again. He has been started on IV fluids and dopamine for blood pressure control. He is still in atrial fibrillation with rapid ventricular response, and we will consult Cardiology, Dr. Meade, who is already aware of the patient. 2. Acute hypoxemic hypercarbic respiratory failure secondary to cardiac arrest. Now with mechanical ventilation. Nebulizers ordered. We will add IV steroids, consult Pulmonary, and repeat an ABG and chest x-ray for in the morning. 3. Chronic obstructive pulmonary disease exacerbation. Please see previous number. 4. Cardiogenic versus septic shock with lactic acidosis. Currently on dopamine. The acidosis improved after mechanical ventilation. So we will continue with IV fluid hydration and broad- spectrum antibiotics. Cultures obtained. Urinalysis ordered. There are infiltrates on the x- ray, so there could be some pneumonia, likely aspiration pneumonia. 5. History of tobacco abuse. 6. History of alcohol abuse. 7. Nonischemic cardiomyopathy with a history of ejection fraction of 20%. We will order an echocardiogram. Cardiology is following. 8. Transaminitis. We will order hepatitis panel. He does have a history of alcohol abuse. 9. Hyperglycemia. Likely reactive to cardiac arrest, but we will order a hemoglobin A1c. We will do pattern blood glucoses with the sliding scale insulin as he will be on steroids which may drive up his blood glucose as well. 10. Currently unresponsive and encephalopathic secondary to cardiac arrest with risk of anoxic injury. Head CT has been ordered. We will likely need an MRI to evaluate for cerebral swelling secondary to hypoxia. 11. History of hypertension, but he is hypotensive and he is on dopamine at this time. That was initiated in the emergency department. Could consider changing to a different pressor since the patient has a history of atrial fibrillation. Dictated by VONDA Lauren for Mahesh Rao MD Addendum: Patine seen and examined by myself. Agree with VONDA note. It reflects my assessment and plan. Patient is being admitted to hospital for cardiac arrest. Hypothermia protocol ongoing. Will transfer him to [facility] and cardiology and pulmonary will be consulted. Prognosis is poor cc: VONDA Lauren MD [facility]
[2018-12-15] MEDS ORDERED: PULMICORT INH SCH ×2 (19:30)
[2018-12-15 19:39] LABS: CALCIUM 8.2 mg/dL (8.8-10.2); CREATININE 1.3 mg/dL (0.7-1.2); POTASSIUM 4.3 mmol/L (3.5-5.1)
[2018-12-15 20:02] LABS: ALLEN TEST YES; BE -5.4 mmoll (-3.0-3.0); BLOOD TYPE ARTERIAL; HCO3-(ACT) 20.7 mmoll (20.0-26.0); METHB 1.6 % (0.0-1.5); O2(CT) 19.1 mL/dL (15.0-23.0); PO2(98.6) 282 mmHg (60-100); SAMPLE BLOOD; SAO2 99.7 % (95.0-100.0); SRATE 12 BPM; THB 13.5 g/dL (11.5-17.4); TVOL 500 mL
[2018-12-15 20:04] LABS: MODALITY VENTILATOR; PCO2(98.6) 74 mmHg (35-45); pH(98.6) 7.14 (7.35-7.45)
[2018-12-15 20:07] LABS: CK INDEX 4.9 (0.0-2.5); CK-MB 21.14 ng/mL (0.0-5.0)
[2018-12-15] MEDS ORDERED: CORDARONE 540 MG in D5W 289.2 ML IV ONE (22:16)
[2018-12-15] MEDS ORDERED: SOLU-MEDROL IV SCH (23:00)
[2018-12-15 23:44] LABS: INR 1.15; PROTIME 14.9 Seconds (11.0-16.0)
[2018-12-15 23:48] LABS: BASO# 0.02 X1000 (0.0-0.2); BASO% 0.1 % (0.0-0.8); EOS# 0.01 X1000 (0.0-0.7); HEMATOCRIT 40.8 % (42.0-52.0); HEMOGLOBIN 13.3 g/dL (14.0-18.0); IMM GRAN# 0.08 X1000 (0.0-0.04); IMM GRAN% 0.3 % (0.0-0.5); LYMPH# 0.57 X1000 (1.2-3.4); LYMPH% 2.3 % (20.5-51.1); MAGNESIUM 1.8 mg/dL (1.5-2.7); MCH 29.6 PG (27-31); MCHC 32.6 g/dL (33-37); MCV 90.7 FL (81-99); MONO# 1.04 X1000 (0.11-0.59); MONO% 4.2 % (1.7-9.3); MPV 10.4 FL (7.4-10.4); NEUT# 22.87 X1000 (1.4-6.5); NEUT% 93.1 % (42.2-75.2); PHOSPHORUS 2.7 mg/dL (2.7-4.5); PLT 298 X1000 (130-400); WBC 24.59 X1000 (4.8-10.8)
[2018-12-16] MEDS: ZOSYN 3.375 GM in NS 50 ML IV SCH ×4 (00:19→17:15)
[2018-12-16] MEDS: LACRI-LUBE OPH OINT BOTH EYES SCH ×4 (00:20→17:01)
[2018-12-16 00:39] LABS: AGAP 17; BUN 25 mg/dL (8-22); CALCIUM 7.7 mg/dL (8.8-10.2); CHLORIDE 103 mmol/L (98-107); COSMO 283; CREATININE 1.1 mg/dL (0.7-1.2); ESTIMATED GFR > 60; GLUCOSE 157 mg/dL (70-104); POTASSIUM 3.6 mmol/L (3.5-5.1); SODIUM 138 mmol/L (136-145); TCO2 18 mmol/L (25-35)
[2018-12-16 00:41] LABS: LYMPHS 2 % (21-51); MONO 1 % (1-9); SEGS 95 % (42-75)
[2018-12-16] MEDS: NIMBEX 80 MG in NS 160 ML IV SCH ×3 (01:30→19:56)
[2018-12-16] MEDS: SOLU-MEDROL IV SCH ×3 (02:04→17:01)
[2018-12-16] MEDS: ATIVAN IV SCH ×6 (02:04→22:13)
[2018-12-16 02:57] LABS: BLOOD TYPE ARTERIAL; SAMPLE BLOOD
[2018-12-16 02:58] LABS: ALLEN TEST YES; HCO3-(ACT) 17.8 mmoll (20.0-26.0); METHB 0.9 % (0.0-1.5); O2(CT) 18.1 mL/dL (15.0-23.0); O2HB 93.3 % (95.0-99.0); PO2(98.6) 77 mmHg (60-100); SAO2 95.8 % (95.0-100.0); SRATE 14 BPM; THB 13.8 g/dL (11.5-17.4); TVOL 550 mL
[2018-12-16 02:59] LABS: MODALITY VENTILATOR; PCO2(98.6) 63 mmHg (35-45); pH(98.6) 7.13 (7.35-7.45)
[2018-12-16 04:07] LABS: CK INDEX 4.8 (0.0-2.5); CK-MB 21.47 ng/mL (0.0-5.0)
[2018-12-16] MEDS: DUONEB (A & A) INH SCH ×6 (04:59→23:02)
[2018-12-16] MEDS: PEPCID IV SCH ×2 (05:30→17:01)
[2018-12-16] MEDS: LOVENOX SUBQ SCH ×2 (05:30→17:01)
[2018-12-16] MEDS: SODIUM CHLORIDE 0.9% INJ SCH ×2 (05:31→17:01)
--- NOTE | 2018-12-16 05:54 | Diag Imaging Result Doc PS360 ---
EXAM: CHEST-PORTABLE HISTORY: resp failure TECHNIQUE: Portable chest single view COMPARISON: 12/15/2018 FINDINGS: The nasogastric tube has been advanced since the prior study. Endotracheal tube in good position. There are increased interstitial markings throughout both lungs. These are slightly more prominent than on the prior study. No cardiomegaly. IMPRESSION: 1.Nasogastric tube has been advanced 2.Worsening infiltrates Electronically signed by Cezar Mac 12/16/2018 5:52 AM
[2018-12-16 07:02] LABS: AGAP 16; BUN 25 mg/dL (8-22); CALCIUM 7.9 mg/dL (8.8-10.2); CHLORIDE 102 mmol/L (98-107); COSMO 283; CREATININE 1.1 mg/dL (0.7-1.2); ESTIMATED GFR > 60; GLUCOSE 159 mg/dL (70-104); POTASSIUM 3.4 mmol/L (3.5-5.1); SODIUM 138 mmol/L (136-145); TCO2 20 mmol/L (25-35)
--- NOTE | 2018-12-16 07:39 | PROGRESS NOTE ---
DATE: 12/16/2018 SUBJECTIVE: Mr. Meraz is intubated. Apparently, blood pressure came up. In fact, he was hypertensive. Put him on a nitroglycerin drip for a time. OBJECTIVE: He is afebrile. Temperature 93.8 degrees, pulse 101, respirations 14, blood pressure 126/68. Pupils are equal. His lungs are clear anterolateral. Cardiovascular Examination: Regular rhythm and rate without murmur or S3. Abdomen is soft. Skin is warm and dry. Blood sugar 156, 144. His chest x-ray from this morning, nasogastric tube has been advanced, worsening infiltrates. There are increased interstitial markings throughout both lungs, slightly more prominent than yesterday. ASSESSMENT AND PLAN: History of nonischemic cardiomyopathy in the past. He has had cardiorespiratory arrest a little over a year ago, similar scenario. I am not sure whether this was truly ventricular tachycardia or atrial fibrillation with wide complex but he had been thought to have Takotsubo cardiomyopathy in the past. Of course, we will repeat an echocardiogram to look at his left ventricular function. Cardiology to follow urine. Urine toxicology just showed benzodiazepines. His lab from yesterday, white count was elevated at 24,590, hematocrit 40, platelet count 298,000. His troponin was 0.029, his CK was 450. We will check another troponin and CK this morning. Pulmonary and cardiology involved. Dr. Meade has seen him. Continue supportive care including pressors to maintain blood pressure when needed. He is on amiodarone at home so he is on an amiodarone infusion at this time. He was previously arranged for a LifeVest as an outpatient at the time of the last hospitalization, August 2017. cc: Jc Recinos MD
[2018-12-16 09:13] LABS: ALLEN TEST YES; BE -8.9 mmoll (-3.0-3.0); BLOOD TYPE ARTERIAL; HCO3-(ACT) 17.9 mmoll (20.0-26.0); METHB 1.2 % (0.0-1.5); O2(CT) 18.3 mL/dL (15.0-23.0); O2HB 94.1 % (95.0-99.0); PO2(98.6) 77 mmHg (60-100); SAMPLE BLOOD; SAO2 96.6 % (95.0-100.0); SRATE 14 BPM; THB 13.8 g/dL (11.5-17.4); TVOL 550 mL
[2018-12-16 09:16] LABS: pH(98.6) 7.12 (7.35-7.45)
[2018-12-16 09:17] LABS: MODALITY VENTILATOR; PCO2(98.6) 66 mmHg (35-45)
--- NOTE | 2018-12-16 09:49 | EKG Report ---
Test Performed on : 12/16/2018 07:00:41 AM Test Reason : chest pain Blood Pressure : / mmHG Vent. Rate : 096 BPM Atrial Rate : 095 BPM P-R Int : 000 ms QRS Dur : 088 ms QT Int : 334 ms P-R-T Axes : 000 031 020 degrees QTc Int : 421 ms Atrial fibrillation. Nonspecific T wave abnormality Abnormal ECG When compared with ECG of 07-SEP-2017 13:52, Previous ECG has undetermined rhythm, needs review ST no longer depressed in Anterior leads T wave inversion no longer evident in Anterolateral leads Confirmed by Kiet CAMPOVERDE, Lesli Villela ([id number]) on 12/17/2018 4:10:59 PM
--- NOTE | 2018-12-16 10:09 | EKG Report ---
Test Performed on : 12/15/2018 4:52:03 PM Test Reason : afib Blood Pressure : / mmHG Vent. Rate : 107 BPM Atrial Rate : 150 BPM P-R Int : 000 ms QRS Dur : 084 ms QT Int : 358 ms P-R-T Axes : 000 050 065 degrees QTc Int : 477 ms Atrial fibrillation. with rapid ventricular response. Abnormal ECG When compared with ECG of 15-DEC-2018 11:15, (Unconfirmed) QRS axis shifted right T wave inversion no longer evident in Lateral leads Confirmed by Lesli Santa MD ([id number]) on 12/17/2018 4:10:42 PM
[2018-12-16 11:14] LABS: BASO# 0.01 X1000 (0.0-0.2); HEMATOCRIT 41.1 % (42.0-52.0); HEMOGLOBIN 13.3 g/dL (14.0-18.0); IMM GRAN# 0.07 X1000 (0.0-0.04); IMM GRAN% 0.3 % (0.0-0.5); LYMPH# 0.86 X1000 (1.2-3.4); LYMPH% 3.4 % (20.5-51.1); MCH 29.4 PG (27-31); MCHC 32.4 g/dL (33-37); MCV 90.7 FL (81-99); MONO# 0.87 X1000 (0.11-0.59); MONO% 3.4 % (1.7-9.3); MPV 10.1 FL (7.4-10.4); NEUT# 23.41 X1000 (1.4-6.5); NEUT% 92.9 % (42.2-75.2); PLT 276 X1000 (130-400); RBC 4.53 XMIL (4.7-6.1); RDW 13.2 % (11.5-14.5); WBC 25.22 X1000 (4.8-10.8)
[2018-12-16 11:16] LABS: INR 1.17; PROTIME 15.1 Seconds (11.0-16.0)
[2018-12-16 11:29] LABS: MAGNESIUM 1.6 mg/dL (1.5-2.7); PHOSPHORUS 3.1 mg/dL (2.7-4.5)
[2018-12-16 11:42] LABS: BANDS 2 % (0-1); LYMPHS 6 % (21-51); MONO 2 % (1-9); SEGS 90 % (42-75)
[2018-12-16 11:44] LABS: AGAP 15; BUN 26 mg/dL (8-22); CALCIUM 7.6 mg/dL (8.8-10.2); CHLORIDE 105 mmol/L (98-107); COSMO 282; ESTIMATED GFR > 60; GLUCOSE 128 mg/dL (70-104); POTASSIUM 4.3 mmol/L (3.5-5.1); SODIUM 138 mmol/L (136-145); TCO2 18 mmol/L (25-35)
[2018-12-16] MEDS: FENTANYL 1,000 MICROGM in NS 80 ML IV SCH (13:00)
[2018-12-16 13:54] LABS: ALLEN TEST YES; BE -5.8 mmoll (-3.0-3.0); BLOOD TYPE ARTERIAL; HCO3-(ACT) 20.3 mmoll (20.0-26.0); METHB 1.4 % (0.0-1.5); O2(CT) 17.9 mL/dL (15.0-23.0); O2HB 93.7 % (95.0-99.0); PO2(98.6) 73 mmHg (60-100); SAMPLE BLOOD; SAO2 96.4 % (95.0-100.0); SRATE 16 BPM; THB 13.6 g/dL (11.5-17.4); TVOL 600 mL; pH(98.6) 7.23 (7.35-7.45)
--- NOTE | 2018-12-16 13:56 | CARDIOLOGY PROGRESS NOTE ---
DATE: 12/16/2018 SUBJECTIVE: Mr. Meraz is currently undergoing cooling protocol. He is sedated, paralyzed on the ventilator. OBJECTIVE: Vital Signs: Afebrile. He is currently in the hypothermia protocol. Rate is 90. Blood pressure 140/78. Telemetry currently seems to show atrial fibrillation. General: No acute distress. Cardiovascular: He is in an irregularly irregular rhythm. He has no murmurs he has no S3. No lower extremity edema. Chest: Sounds relatively clear. He has no increased work of breathing. ABDOMEN: Soft and nontender. PERTINENT LABORATORY DATA: His white count is 25, hematocrit is 41, his platelet count is 276,000. His INR is 1.1. His ABG was reviewed. He continues to be quite acidotic, lactate 2.7. His sodium is 138, potassium 3.4, BUN 25, creatinine is 1.1. His troponin is negative. ASSESSMENT: Mr. Meraz is a 63-year-old gentleman who presented after a VFib arrest at home. He has a history of this previously around 1 year ago. PLAN: We will continue him on the amiodarone infusion. His echocardiogram is currently pending. I would currently recommend supportive care as currently being undertaken for this patient. We will follow up on his echocardiogram. cc: Zia Meade MD
[2018-12-16 14:06] LABS: MODALITY VENTILATOR; PCO2(98.6) 53 mmHg (35-45)
[2018-12-16] MEDS: CORDARONE 360 MG/D5W 360 MG/200 ML IV.SOLN IV SCH (15:24)
[2018-12-16] MEDS: VANCOMYCIN 1,500 MG in NS 250 ML IV SCH (15:36)
--- NOTE | 2018-12-16 15:56 | ECHO REPORT ---
ORDER DATE: 12/15/2018 INDICATION: Cardiac arrest. FINDINGS: 1. Right atrium appears normal in size at 2.9 cm. 2. Mild tricuspid regurgitation. RV systolic pressure of 53. 3. Normal RV size and systolic function. 4. No significant pulmonic insufficiency. 5. Normal left atrial size with a volume index of 25. 6. No mitral valve prolapse. Mild mitral regurgitation. 7. Normal LV size, end-diastolic dimension of 4 cm. Poor visualization of endocardial borders but I do not see any clear evidence of left ventricular hypertrophy. Normal LV systolic function. Estimated EF of 60 to 65% with normal appearing wall motion. 8. Aortic valve opens well. No evidence of stenosis or insufficiency. 9. Aorta appears normal in visualized segments. 10. No pericardial effusion seen. cc: Zia Meade MD
[2018-12-16] MEDS ORDERED: VANCOMYCIN 1,500 MG in NS 250 ML IV SCH (16:00)
[2018-12-16 18:54] LABS: AGAP 12; BUN 26 mg/dL (8-22); CALCIUM 7.7 mg/dL (8.8-10.2); CHLORIDE 105 mmol/L (98-107); COSMO 280; CREATININE 0.9 mg/dL (0.7-1.2); ESTIMATED GFR > 60; GLUCOSE 95 mg/dL (70-104); POTASSIUM 4.4 mmol/L (3.5-5.1); SODIUM 138 mmol/L (136-145); TCO2 21 mmol/L (25-35)
[2018-12-16] MEDS: HUMULIN R 100 UNIT in NS 100 ML IV SCH (19:55)
[2018-12-16 20:13] LABS: ALLEN TEST YES; BE -6.6 mmoll (-3.0-3.0); BLOOD TYPE ARTERIAL; HCO3-(ACT) 19.7 mmoll (20.0-26.0); O2(CT) 18.4 mL/dL (15.0-23.0); O2HB 95.8 % (95.0-99.0); PCO2(98.6) 49 mmHg (35-45); PO2(98.6) 85 mmHg (60-100); SAMPLE BLOOD; SAO2 98.4 % (95.0-100.0); SRATE 16 BPM; THB 13.6 g/dL (11.5-17.4); TVOL 600 mL; pH(98.6) 7.24 (7.35-7.45)
[2018-12-16 20:14] LABS: MODALITY VENTILATOR
--- NOTE | 2018-12-16 20:19 | CONSULTATION ---
DATE OF CONSULTATION: 12/16/2018 CHIEF COMPLAINT: Cardiac arrest. HISTORY OF PRESENT ILLNESS: This is a 63-year-old, male who apparently was talking with his sister and loss consciousness. Eyes rolled back, and he developed difficulty breathing and on went into cardiac arrest. His sister started CPR until paramedics arrived. When paramedics arrived, they administered 1 of epinephrine and 1 atropine and intubated the patient. He has a past medical history of cardiac arrhythmias. PAST MEDICAL HISTORY: Hypertension. History of cardiac arrhythmias. Also, COPD. FAMILY HISTORY: Breast cancer, mother. Lung cancer, father. ALLERGIES: No known drug allergies. SOCIAL HISTORY: He lives alone. Smokes a pack of cigarettes per day for 30 years. REVIEW OF SYSTEMS: A 10-point review of systems was obtained and the pertinent are listed in the HPI, otherwise noncontributory. DIAGNOSTIC DATA: Chest x-ray increased interstitial markings throughout both lungs believed to be fibrosis and small underlying infiltrates. LABORATORY DATA: White blood cells 25.22, red blood cells 4.53, hemoglobin 13.3, hematocrit 41.1. PH 7.33, pCO2 63, PO2 73, HC03 20.3. Base excess -5.8, oxyhemoglobin 93.7. Sodium 138, potassium 3.4, chloride 102, carbon dioxide 20, BUN 25, creatinine 1.1, glucose 151, CK-MB 21.47, troponin T 0.029. PAST SURGICAL HISTORY: Unknown. PHYSICAL EXAM: Vital Signs: Temperature 96.2, heart rate 119, respiratory rate 16. General: This is a 63-year-old, male, on ventilatory support at the present time. HEENT: Head is atraumatic, normocephalic. Trachea midline. Endotracheal tube in place. Cardiovascular: A regular rhythm and rate without murmur. Abdomen: Soft. Respiratory: Lungs are clear to auscultation. Skin: Warm and dry. Extremities: Without edema or cyanosis. ASSESSMENT AND PLAN: 1. Cardiac arrest. Cardiology is following. 2. Acute hypoxic respiratory failure secondary to a cardiac arrest. Continue mechanical ventilation. We will monitor with ABGs. 3. Chronic obstructive pulmonary disease/pulmonary fibrosis. Continue steroids and bronchodilators. to go up above the lungs. 4. Hyperglycemia. Continue to monitor with fingerstick blood glucose and sliding scale. 5. Continue gastrointestinal and deep vein thrombosis prophylaxis. Thank you for the courtesy of this consult. Dictated by VONDA Sen for Laurent Zapien MD cc: VONDA Sen MD
[2018-12-16 23:02] LABS: BASO# 0.01 X1000 (0.0-0.2); HEMATOCRIT 39.3 % (42.0-52.0); HEMOGLOBIN 12.9 g/dL (14.0-18.0); IMM GRAN# 0.18 X1000 (0.0-0.04); IMM GRAN% 0.5 % (0.0-0.5); LYMPH# 1.33 X1000 (1.2-3.4); LYMPH% 3.9 % (20.5-51.1); MCH 29.6 PG (27-31); MCHC 32.8 g/dL (33-37); MCV 90.1 FL (81-99); MONO# 1.48 X1000 (0.11-0.59); MONO% 4.3 % (1.7-9.3); MPV 10.3 FL (7.4-10.4); NEUT# 31.24 X1000 (1.4-6.5); NEUT% 91.3 % (42.2-75.2); PLT 235 X1000 (130-400); RBC 4.36 XMIL (4.7-6.1); WBC 34.24 X1000 (4.8-10.8)
[2018-12-16 23:07] LABS: INR 1.2; PROTIME 15.3 Seconds (11.0-16.0)
[2018-12-16 23:25] LABS: MAGNESIUM 2.2 mg/dL (1.5-2.7); PHOSPHORUS 3.4 mg/dL (2.7-4.5)
[2018-12-16] MEDS ORDERED: LANOXIN IV ONE (23:34)
[2018-12-16 23:45] LABS: AGAP 19; BUN 27 mg/dL (8-22); CHLORIDE 108 mmol/L (98-107); COSMO 290; CREATININE 0.9 mg/dL (0.7-1.2); ESTIMATED GFR > 60; GLUCOSE 104 mg/dL (70-104); POTASSIUM 4.7 mmol/L (3.5-5.1); SODIUM 143 mmol/L (136-145); TCO2 16 mmol/L (25-35)
[2018-12-17] MEDS: LACRI-LUBE OPH OINT BOTH EYES SCH (00:13)
[2018-12-17] MEDS: ZOSYN 3.375 GM in NS 50 ML IV SCH ×4 (00:13→17:58)
[2018-12-17 00:50] LABS: LYMPHS 2 % (21-51); MONO 3 % (1-9); SEGS 95 % (42-75)
[2018-12-17] MEDS ORDERED: ZOFRAN IV PRN (02:23)
[2018-12-17] MEDS: SOLU-MEDROL IV SCH ×3 (02:29→17:57)
[2018-12-17] MEDS: CORDARONE 360 MG/D5W 360 MG/200 ML IV.SOLN IV SCH ×3 (02:29→15:09)
[2018-12-17] MEDS: ATIVAN IV PRN ×2 (02:29→05:42)
[2018-12-17 03:10] LABS: ALLEN TEST YES; BE -4.4 mmoll (-3.0-3.0); BLOOD TYPE ARTERIAL; HCO3-(ACT) 21.4 mmoll (20.0-26.0); METHB 1.6 % (0.0-1.5); O2(CT) 17.2 mL/dL (15.0-23.0); O2HB 94.5 % (95.0-99.0); PCO2(98.6) 39 mmHg (35-45); PO2(98.6) 71 mmHg (60-100); SAMPLE BLOOD; SAO2 97.5 % (95.0-100.0); SRATE 14 BPM; THB 12.9 g/dL (11.5-17.4); TVOL 600 mL; pH(98.6) 7.34 (7.35-7.45)
[2018-12-17 03:11] LABS: MODALITY VENTILATOR
[2018-12-17] MEDS: DUONEB (A & A) INH SCH ×6 (03:37→22:41)
[2018-12-17] MEDS: LOVENOX SUBQ SCH ×2 (05:44→17:56)
[2018-12-17] MEDS: PEPCID IV SCH ×2 (05:44→18:06)
[2018-12-17] MEDS: SODIUM CHLORIDE 0.9% INJ SCH ×2 (05:45→18:06)
[2018-12-17 07:01] LABS: AGAP 15; BUN 29 mg/dL (8-22); CALCIUM 8.3 mg/dL (8.8-10.2); CHLORIDE 103 mmol/L (98-107); COSMO 281; CREATININE 1.1 mg/dL (0.7-1.2); ESTIMATED GFR > 60; GLUCOSE 123 mg/dL (70-104); POTASSIUM 5.3 mmol/L (3.5-5.1); SODIUM 137 mmol/L (136-145); TCO2 19 mmol/L (25-35)
--- NOTE | 2018-12-17 07:13 | Diag Imaging Result Doc PS360 ---
EXAM: CHEST-PORTABLE INDICATION: Hypothermia protocol TECHNIQUE: One view COMPARISON: 12/16/2018 FINDINGS: Support tubes and lines are in stable positions. The interstitial infiltrates seen previously are approximately stable. No new consolidation is identified. Cardiac silhouette is stable. IMPRESSION: Stable chest. Electronically signed by Joao Arechiga 12/17/2018 7:10 AM
[2018-12-17 08:27] LABS: ALLEN TEST YES; BE -4.1 mmoll (-3.0-3.0); BLOOD TYPE ARTERIAL; HCO3-(ACT) 21.7 mmoll (20.0-26.0); O2(CT) 16.6 mL/dL (15.0-23.0); O2HB 97.4 % (95.0-99.0); PCO2(98.6) 41 mmHg (35-45); PO2(98.6) 112 mmHg (60-100); SAMPLE BLOOD; SAO2 100.6 % (95.0-100.0); SRATE 16 BPM; TVOL 600 mL; pH(98.6) 7.33 (7.35-7.45)
[2018-12-17 08:28] LABS: MODALITY VENTILATOR
--- NOTE | 2018-12-17 08:49 | CARDIOLOGY PROGRESS NOTE ---
DATE: 12/17/2018 SUBJECTIVE: Mr. Meraz continues to be on the ventilator. He is sedated with fentanyl at this time. I believe he is in the rewarming phase of the hypothermia protocol. He continues on the ventilator. The patient has no documented fevers. Again, hypothermia protocol has been noted. OBJECTIVE: Vital Signs: Heart rate 78, blood pressure 121/51. General: He is in no acute distress. HEENT: Oropharynx is moist. Poor dentition. Cardiovascular: He is in a regular rate and rhythm. He appears to have converted to sinus. Extremities: He has no lower extremity edema. Chest: Sounds relatively clear. Mechanical breath sounds are heard throughout. Abdomen: Soft, nontender. Bowel sounds are auscultated. PERTINENT DATA: His echo from yesterday demonstrated a normal ejection fraction. No significant valvular abnormalities on that study. His chest x-ray today demonstrates some interstitial infiltrates previously noted. Lab data yesterday showed a white count of 34, hematocrit of 39, platelet count of 235,000. This morning, his sodium is 137, potassium 5.3, BUN 29, creatinine is 1.1, which is relatively stable. ASSESSMENT: Mr. Meraz is a 63-year-old gentleman who suffered an [id number] atrial fibrillation arrest. PLAN: At this point, I do not have any acute recommendations. Will continue him on the amiodarone until he is able to take oral medications, as a prophylactic for the ventricular fibrillation. If he recovers neurologically, he will likely need a defibrillator implant. Notably, he had no significant coronary disease identified 1 year ago. cc: Zia Meade MD
[2018-12-17] MEDS: FENTANYL 1,000 MICROGM in NS 80 ML IV SCH (10:02)
[2018-12-17 10:34] LABS: INR 1.33; PROTIME 16.7 Seconds (11.0-16.0)
[2018-12-17 10:35] LABS: PTT 38.5 Seconds (22.3-41.8)
[2018-12-17] MEDS: HUMULIN R SUBQ SCH ×2 (10:51→15:28)
[2018-12-17 10:54] LABS: CK INDEX 5.7 (0.0-2.5); CK-MB 13.47 ng/mL (0.0-5.0)
--- NOTE | 2018-12-17 11:31 | PROGRESS NOTE ---
DATE: 12/17/2018 SUBJECTIVE: Mr. Meraz is intubated. Blood pressure has improved. OBJECTIVE: He remains afebrile. Temperature 99.5 degrees, pulse 80, respirations 16, blood pressure 124/55. Pupils are equal and round. Lungs are clear in all lung golden. Cardiovascular Examination: Regular rhythm and rate without murmur or S3. Abdomen is soft. Skin is warm and dry. Urine output was 1500 mL. Blood sugars 115, 104, 129. ASSESSMENT AND PLAN: 1. He suffered out of hospital atrial fibrillation, arrest is what appears. He is on amiodarone and taking oral medications as a prophylactic for ventricular fibrillation. 2. Chronic obstructive pulmonary disease and some underlying pulmonary fibrosis. 3. Hyperglycemia. 4. We will make attempts to try to wean him off the ventilator per pulmonary. REVIEW OF HIS ORDERS: Getting Ativan as needed 1 mg IV q.3 hours. He is on amiodarone drip. He is getting amiodarone 360 mg IV q.12. He is on Lovenox 30 mg subcutaneous q.12, Pepcid 20 mg IV q.12. He is on norepinephrine, methylprednisone 40 mg IV q.8, vancomycin 1500 mg IV q.24 hours, Zosyn 3.375 g IV q.6, and digoxin 250 mcg. He got one dose. LABORATORY DATA: Today, white count elevated at 34,240, hematocrit 39, platelet count 235,000. Electrolytes from this morning, sodium 137, potassium 5.3, chloride 103, BUN 29, creatinine 1.1. He has diabetes mellitus. It appears that he is on Solu-Medrol. Sugars appear well controlled. cc: Jc Recinos MD
[2018-12-17] MEDS: VANCOMYCIN 1,500 MG in NS 250 ML IV SCH (16:08)
[2018-12-18] MEDS: HUMULIN R SUBQ SCH ×5 (00:09→20:35)
[2018-12-18] MEDS: MORPHINE IV PRN ×4 (00:14→18:37)
[2018-12-18] MEDS: ZOSYN 3.375 GM in NS 50 ML IV SCH ×2 (00:15→06:27)
[2018-12-18] MEDS: SOLU-MEDROL IV SCH ×3 (02:56→17:26)
[2018-12-18] MEDS: CORDARONE 360 MG/D5W 360 MG/200 ML IV.SOLN IV SCH ×3 (02:56→15:42)
[2018-12-18] MEDS: DUONEB (A & A) INH SCH ×6 (03:50→22:58)
[2018-12-18 04:49] LABS: ALLEN TEST YES; BE 0.4 mmoll (-3.0-3.0); BLOOD TYPE ARTERIAL; HCO3-(ACT) 25.2 mmoll (20.0-26.0); METHB 1.5 % (0.0-1.5); O2(CT) 10.4 mL/dL (15.0-23.0); O2HB 95.1 % (95.0-99.0); PCO2(98.6) 42 mmHg (35-45); PO2(98.6) 72 mmHg (60-100); SAMPLE BLOOD; SAO2 97.5 % (95.0-100.0); SRATE 16 BPM; THB 7.7 g/dL (11.5-17.4); TVOL 600 mL; pH(98.6) 7.39 (7.35-7.45)
[2018-12-18 04:51] LABS: MODALITY VENTILATOR
[2018-12-18] MEDS: LOVENOX SUBQ SCH ×2 (06:28→17:26)
[2018-12-18] MEDS: PEPCID IV SCH (06:28)
[2018-12-18] MEDS: SODIUM CHLORIDE 0.9% INJ SCH ×2 (06:28→17:27)
[2018-12-18 07:10] LABS: ALB/GLOB RATIO 0.9; ALKALINE PHOSPHATASE 64 U/L (32-122); DIRECT BILIRUBIN < 0.10 mg/dL (0.00-0.20); GOT 63 U/L (10-34); GPT 86 U/L (10-44); TOTAL BILIRUBIN 0.32 mg/dL (0.20-1.00); TOTAL PROTEIN 6.2 g/dL (6.3-8.3)
--- NOTE | 2018-12-18 07:16 | Diag Imaging Result Doc PS360 ---
EXAM: CHEST-PORTABLE 12/18/2018 HISTORY: Hypothermia protocol TECHNIQUE: AP portable at 0525 COMMENT: There is increased alveolar opacity in both lower lobes compared to 12/17/2018. The endotracheal tube remains with its tip at the thoracic inlet and the NG tube passes below the diaphragm. IMPRESSION: Worsening pulmonary edema and/or pneumonia. Electronically signed by Drew Gonzalez 12/18/2018 7:13 AM
[2018-12-18 07:29] LABS: AGAP 18; BUN 39 mg/dL (8-22); CALCIUM 8.6 mg/dL (8.8-10.2); CHLORIDE 104 mmol/L (98-107); COSMO 286; CREATININE 1.2 mg/dL (0.7-1.2); ESTIMATED GFR > 60; GLUCOSE 118 mg/dL (70-104); POTASSIUM 5.7 mmol/L (3.5-5.1); SODIUM 138 mmol/L (136-145); TCO2 16 mmol/L (25-35)
[2018-12-18 07:37] LABS: BASO# 0.02 X1000 (0.0-0.2); BASO% 0.1 % (0.0-0.8); EOS# 0.09 X1000 (0.0-0.7); EOS% 0.3 % (0.0-10.0); HEMATOCRIT 35.3 % (42.0-52.0); HEMOGLOBIN 11.8 g/dL (14.0-18.0); IMM GRAN# 0.23 X1000 (0.0-0.04); IMM GRAN% 0.8 % (0.0-0.5); LYMPH# 0.79 X1000 (1.2-3.4); LYMPH% 2.8 % (20.5-51.1); MCH 30.7 PG (27-31); MCHC 33.4 g/dL (33-37); MCV 91.9 FL (81-99); MONO# 1.09 X1000 (0.11-0.59); MONO% 3.9 % (1.7-9.3); MPV 11.2 FL (7.4-10.4); NEUT# 25.54 X1000 (1.4-6.5); NEUT% 92.1 % (42.2-75.2); PLT 245 X1000 (130-400); RBC 3.84 XMIL (4.7-6.1); RDW 14.4 % (11.5-14.5); WBC 27.76 X1000 (4.8-10.8)
[2018-12-18] MEDS ORDERED: HUMULIN R IV ONE (07:43)
[2018-12-18] MEDS ORDERED: ALBUTEROL 0.5% INH CONC FOR HYPERKALEMIA INH ONE (07:43)
[2018-12-18] MEDS ORDERED: D50W SYRINGE IV ONE (07:43)
[2018-12-18 08:03] LABS: LYMPHS 8 % (21-51); MONO 4 % (1-9); SEGS 88 % (42-75)
--- NOTE | 2018-12-18 10:22 | PROGRESS NOTE ---
DATE: 12/18/2018 SUBJECTIVE: The patient is currently unresponsive on the ventilator. He is off of sedation. OBJECTIVE: Vital Signs: T-max 100.1 degrees, blood pressure 128/61, heart rate 71, respirations 16, O2 saturation 97% on the mechanical ventilator, FiO2 of 40%. Intake 16; output 1 L. General: This is a chronically ill-appearing elderly male currently on the ventilator. Head: Normocephalic, atraumatic. Heart: S1, S2 normal. Regular rate and rhythm. Lungs: Coarse breath sounds bilaterally. Abdomen: Hypoactive bowel sounds. Soft, nontender, nondistended. Extremities: No edema, no cyanosis. No calf tenderness. Neurologic: The patient is unresponsive. LABS: White blood cell count 27, hemoglobin 11, hematocrit 35, platelets 245. ABG reveals pH of 7.39, pCO2 of 42, PO2 72, bicarbonate 25. Sodium 138, potassium 5.7, chloride 104, CO2 16. BUN 39, creatinine 1.2, glucose 118. AST 63, ALT 86, alkaline phosphatase 64. X-RAYS: Chest x-ray: Worsening pulmonary edema and/or pneumonia. ASSESSMENT AND PLAN: 1. Acute hypoxemic respiratory failure. The patient has pneumonia. Continue with ventilatory support as directed by the systems trainer. 2. Pneumonia secondary to Pseudomonas. The patient was febrile overnight. We will repeat the blood cultures. Continue on Zosyn. We will also consult Infectious Disease. 3. Status post cardiac arrest. The patient is currently on amiodarone. Once the patient recovers from this acute event, he will likely need an automatic implantable cardioverter defibrillator. Management as per the motorcycle riding instructor. 4. Encephalopathy. The patient is off sedation. However, he is still very slow to respond. Will order an electroencephalogram and consult Neurology. 5. Leukocytosis, multifactorial. The patient is on steroids and currently has an active infection. We will continue to monitor closely. 6. Transaminitis. Improved. 7. Nutrition: The patient remains on nothing by mouth at this time. 8. Hyperkalemia. We will treat the patient's elevated potassium. Will repeat a potassium level later this afternoon. 9. Diabetes mellitus type 2. Continue on sliding scale insulin coverage. 10. Metabolic acidosis. The patient has an anion gap of 18. We will continue to monitor this closely. 11. Acute kidney injury. We will check urine studies. The patient is having adequate urine output. We will avoid nephrotoxic agents. 12. Gastrointestinal prophylaxis. The patient will be switched to Nexium. 13. Deep vein thrombosis prophylaxis. The patient is currently on Lovenox. 14. Hypothyroidism. Will start the patient on Synthroid. cc: Vivian Flor MD MTDD
[2018-12-18] MEDS: MAXIPIME 2 GM in NS 100 ML IV SCH ×2 (11:29→19:55)
--- NOTE | 2018-12-18 12:08 | INFECTIOUS DISEASE CONSULT REP ---
DATE: 12/18/2018 CONCLUSION: The patient has a Pseudomonas pneumonia. There may be a component of pulmonary venous congestion as well. I agree with Dr. Flor that the patient's leukocytosis may be due to a pneumonia and also possibly the patient is on steroids which could also elevate the white count. RECOMMENDATIONS: I have discontinued vancomycin and Zosyn and have placed the patient on cefepime 2 g IV every 8 hours,. Also I have ordered a procalcitonin level. DISCUSSION: The patient is unable to supply a history. He is intubated and sedated. According to the information in the computer, the patient suffered an atrial fibrillation arrest. He passed out and had CPR performed for at least 20 minutes. He currently is in the intensive care unit, and he is intubated and sedated. DIAGNOSTIC STUDIES: [place] a [place] [address], hemoglobin 11.8, and platelet count 245,000. Blood gases show a pH of 7.39, a PO2 of 72, and a pCO2 of 42. The creatinine is 1.2. GFR is greater than 60. Chest x-ray shows worsening pulmonary edema versus pneumonia or some combination. Repeat blood cultures are pending. Initial blood cultures and urine culture with no growth. Sputum grew Pseudomonas. Urinalysis shows white cells and red blood cells, but no bacteria. The patient's ALT is 86. PATIENT'S PAST MEDICAL HISTORY: Positive for paroxysmal atrial fibrillation, nonischemic cardiomyopathy with a 20% ejection fraction, hypertension, chronic pain syndrome for which the patient had been on Suboxone. Patient also has hypothyroidism and hyperlipidemia. SURGICAL HISTORY: Unknown. SOCIAL HISTORY: The patient is . He lives by himself. The patient has smoked cigarettes heavily for at least 30 years. FAMILY HISTORY: Positive for breast cancer and lung cancer. ALLERGIES: The patient has no known drug allergies. SOCIAL HISTORY: The patient is . He lives by himself. He smokes cigarettes as mentioned above for at least 30 years. The patient has a sister who lives in [place] and a daughter who does not live with him. HOME MEDICATIONS: Include the following: Eliquis, atorvastatin, Suboxone, Coreg, Librium, Celexa, Synthroid, losartan, and montelukast. PHYSICAL EXAMINATION: Vital Signs: Temperature is 100 degrees, pulse 85, respirations 22, blood pressure 159/69. Height/Weight: The patient is 5 feet 9 inches tall and weighs 176 pounds. General: Other than the fact that he has been intubated, he looks to be fairly healthy. He is obtunded. Head, Eyes, Ears, Nose, and Throat: Patient has an orotracheal tube and a nasogastric tube in place. No drainage noted from the nose or the ears. Neck: No meningismus. Lungs: Clear to auscultation. Cardiovascular: Heart rate is regular. Abdomen: Soft nontender. Neurologic: The patient is obtunded. He did not respond to verbal stimuli. There is no tremor. Integument: No rash noted. Thank you for the consult. cc: Ameya Payne MD
[2018-12-18] MEDS: LOPRESSOR IV SCH ×2 (13:15→20:05)
[2018-12-18 13:22] LABS: HEPATITIS PROFILE ACUTE SEE COMMENTS
--- NOTE | 2018-12-18 13:24 | CARDIOLOGY PROGRESS NOTE ---
DATE: 12/18/2018 SUBJECTIVE: Mr. Meraz is not on sedation this morning. He is not responding to any physical or verbal stimuli at this time. PHYSICAL EXAMINATION: The patient is afebrile all the way up to 100.1 this morning. Heart rates are in the 110s to 120s and appear sinus, blood pressure 155/68. General: He is in no acute distress. Cardiovascular: He is in a tachycardic and regular rhythm. He has no murmurs. He has no S3. He has no lower extremity edema. Chest: Exam sounds clear with mechanical breath sounds throughout all lung golden. Abdomen: Soft, nontender. PERTINENT DATA: White count 27, hematocrit 35, platelet count 245,000. Sodium 138, potassium 5.7 which continues to trend up slightly, BUN 39, creatinine 1.2. ProBNP 5872. INTAKE AND OUTPUT: Notably his intakes and outputs are slightly positive at 2.1 L positive over the course of the hospitalization. ASSESSMENT: Mr. Meraz is a 63-year-old man who suffered an xyf-ah-pfttumtt ventricular fibrillation arrest. PLAN: At this point, we will continue him on amiodarone infusion and try to maintain sinus. He is in mild sinus tachycardia. His blood pressures have been a little bit elevated in the meantime. I will put him initially on 5 mg of IV Lopressor q.8 h. to try to improve blood pressure control as well as heart rate control. cc: Zia Meade MD
--- NOTE | 2018-12-18 15:06 | CONSULTATION ---
DATE OF CONSULTATION: 12/18/2018 SUBJECTIVE: Mr. Meraz had cardiac arrest 3 days ago. He has not recovered consciousness. He had morphine 4 mg dose at midnight and at 11:30 a.m. today, a few hours before my visit. He has not had other sedatives today. Computer record shows last IV fentanyl was yesterday. He had lorazepam yesterday. His home medicines include chlordiazepoxide and buprenorphine, so he likely has significant benzodiazepine and opiate tolerance. LABORATORY DATA: Lab showed WBC 27,000, mildly elevated blood sugar and liver enzymes which have improved. BUN has climbed from 17 to 39. IMAGING: Noncontrast CT of the head shows nothing remarkable. He had a similar event with cardiopulmonary arrest in August,. He had persistent coma then, but eventually recovered. I saw him during that time frame. Family at the bedside today reports no recent head injury. They report he has had some palpitations and possibly some lightheadedness, but no episodes of collapse or unconsciousness since his event 16 months ago. He has never had clinical stroke. He has not had clinical seizure. EXAMINATION: On exam, he is supine, intubated, not moving the limbs spontaneously. There was some spontaneous tongue and mouth movement, which is sometimes rhythmic. There is full lateral eye movement with passive head turning. Pupils react slightly to bright light. Corneal reflexes are present bilaterally. Limb tone is symmetric. I did not see definite response to noxious stimulation over the limbs. Plantar response is silent bilaterally. Neck shows no meningismus. There is not palpable skull defect. IMPRESSION: Coma, multiple possible factors. There may be anoxic/ischemic brain injury and there may be lingering effect of sedative medicines. Mouth movement raises suspicion for seizure and EEG is ordered to check on that possibility. I had aneta discussion with family away from the bedside regarding uncertain prognosis but possibility that he will not do as well this time as he did following last event. Thanks for asking Neurology to see Mr. Meraz. cc: MD JEYSON Araujo III
[2018-12-18 15:47] LABS: AGAP 12; ALBUMIN 3.5 g/dL (3.5-5.0); BUN 38 mg/dL (8-22); CALCIUM 8.7 mg/dL (8.8-10.2); CHLORIDE 103 mmol/L (98-107); COSMO 287; ESTIMATED GFR > 60; GLUCOSE 165 mg/dL (70-104); PHOSPHORUS 1.9 mg/dL (2.7-4.5); POTASSIUM 4.5 mmol/L (3.5-5.1); SODIUM 137 mmol/L (136-145); TCO2 22 mmol/L (25-35)
[2018-12-18] MEDS ORDERED: SODIUM PHOSPHATE 30 MMOL in NS 250 ML IV ONE (15:53)
--- NOTE | 2018-12-18 19:48 | EEG REPORT ---
DATE: 12/18/2018 COMMENT: This is a digitally recorded EEG done portably in the ICU on a 63-year-old patient, with persistent unresponsiveness following cardiopulmonary arrest. There is oral movement, raising question of seizure. FINDINGS: The record shows status epilepticus. There is generalized spike and wave, polyspike and wave, sharp and slow wave, with highest amplitude frontally throughout the record. Photic stimulation did not alter the record. There was no definite interictal record. There is muscle contraction, yawning and sneezing artifact which do not hinder interpretation. INTERPRETATION: Status epilepticus. CORRELATION: This suggests seizure as the reason for the oral movement and a possible explanation for his persistent poor responsiveness. cc: MD Vivian Araujo III, MD
[2018-12-18] MEDS: KEPPRA 1,500 MG/NS 1,500 MG/100 ML IVPB IV SCH (20:35)
[2018-12-19] MEDS: SOLU-MEDROL IV SCH ×3 (01:54→17:29)
[2018-12-19] MEDS: MAXIPIME 2 GM in NS 100 ML IV SCH ×3 (03:04→19:58)
[2018-12-19] MEDS: CORDARONE 360 MG/D5W 360 MG/200 ML IV.SOLN IV SCH ×2 (03:06→15:02)
[2018-12-19] MEDS: DUONEB (A & A) INH SCH ×6 (03:35→23:27)
[2018-12-19 04:39] LABS: ALLEN TEST YES; BE -0.1 mmoll (-3.0-3.0); BLOOD TYPE ARTERIAL; HCO3-(ACT) 24.8 mmoll (20.0-26.0); PCO2(98.6) 36 mmHg (35-45); PO2(98.6) 85 mmHg (60-100); SAMPLE BLOOD; SRATE 16 BPM; TVOL 600 mL; pH(98.6) 7.43 (7.35-7.45)
[2018-12-19 04:40] LABS: MODALITY VENTILATOR
[2018-12-19] MEDS: LOPRESSOR IV SCH ×3 (04:42→17:29)
[2018-12-19 05:46] LABS: BASO# 0.02 X1000 (0.0-0.2); BASO% 0.1 % (0.0-0.8); HEMATOCRIT 33.9 % (42.0-52.0); HEMOGLOBIN 11.3 g/dL (14.0-18.0); IMM GRAN# 0.13 X1000 (0.0-0.04); IMM GRAN% 0.5 % (0.0-0.5); LYMPH# 0.78 X1000 (1.2-3.4); LYMPH% 3.1 % (20.5-51.1); MCH 29.4 PG (27-31); MCHC 33.3 g/dL (33-37); MCV 88.3 FL (81-99); MONO# 1.23 X1000 (0.11-0.59); MONO% 4.9 % (1.7-9.3); NEUT# 22.81 X1000 (1.4-6.5); NEUT% 91.4 % (42.2-75.2); PLT 247 X1000 (130-400); RBC 3.84 XMIL (4.7-6.1); RDW 14.2 % (11.5-14.5); WBC 24.97 X1000 (4.8-10.8)
[2018-12-19 05:59] LABS: AGAP 12; BUN 36 mg/dL (8-22); CALCIUM 8.3 mg/dL (8.8-10.2); CHLORIDE 107 mmol/L (98-107); COSMO 291; CREATININE 1.1 mg/dL (0.7-1.2); ESTIMATED GFR > 60; GLUCOSE 126 mg/dL (70-104); POTASSIUM 4.2 mmol/L (3.5-5.1); SODIUM 141 mmol/L (136-145); TCO2 22 mmol/L (25-35)
[2018-12-19 06:04] LABS: ALB/GLOB RATIO 1.2; ALBUMIN 3.3 g/dL (3.5-5.0); DIRECT BILIRUBIN 0.1 mg/dL (0.00-0.20); TOTAL BILIRUBIN 0.4 mg/dL (0.20-1.00); TOTAL PROTEIN 6.1 g/dL (6.3-8.3)
[2018-12-19] MEDS: HUMULIN R SUBQ SCH ×4 (06:13→21:00)
[2018-12-19] MEDS: PROTONIX IV SCH (06:16)
[2018-12-19] MEDS: SODIUM CHLORIDE 0.9% INJ SCH ×2 (06:16→06:20)
[2018-12-19] MEDS: SODIUM CHLORIDE 0.9% INJ PRN (06:17)
[2018-12-19] MEDS: SYNTHROID IV SCH (06:17)
[2018-12-19] MEDS: LOVENOX SUBQ SCH ×2 (06:19→17:30)
--- NOTE | 2018-12-19 07:16 | Diag Imaging Result Doc PS360 ---
EXAM: CHEST-PORTABLE 12/19/2018 HISTORY: Hypothermia protocol TECHNIQUE: AP portable at 0528 COMMENT: There is an endotracheal tube with its tip at thoracic inlet and an NG tube with its tip below the diaphragm. There continues to be interstitial and some alveolar opacity particularly in the right lower lobe. This has improved slightly since 12/18/2018. IMPRESSION: Minimally improved pulmonary edema. Electronically signed by Drew Gonzalez 12/19/2018 7:13 AM
[2018-12-19] MEDS: KEPPRA 1,500 MG/NS 1,500 MG/100 ML IVPB IV SCH ×2 (08:26→20:56)
--- NOTE | 2018-12-19 09:54 | INFECTIOUS DISEASE PROGRESS NO ---
DATE: 12/19/2018 PRESENT ILLNESS: Mr. Meraz is being treated for a Pseudomonas pneumonia, which shows some mild improvement on the chest x-ray. He is status post cardiac arrest, and continues on the mechanical ventilator. There is a leukocytosis as well, which is in part due to steroid administration. MEDICATIONS: He is receiving cefepime 2 grams IV every 8 hours, as well as IV Solu-Medrol. PHYSICAL EXAMINATION: Vital Signs: Temperature is 99.4 degrees, pulse rate 81, respiratory rate 20, blood pressure 161/68, O2 saturation is 97% on 40% FiO2 on the mechanical ventilator. General: This is a critically ill-appearing gentleman. He is lying in the bed. Minimally responsive on the mechanical ventilator. HEENT: Atraumatic, normocephalic. Oral mucous membranes are pink and moist. Conjunctivae are pink. Neck: Oral ET tube is in place, as well as NG tube to low intermittent wall suction. Respiratory: Lung sounds have coarse breath sounds bilaterally. He is breathing above the set rate on the ventilator. Cardiovascular: Heart rate and rhythm are regular. Normal sinus rhythm on the monitor. Abdomen: Soft, flat, and nontender. Bowel sounds are hypoactive. Neurologic: He will open his eyes upon request, and does move his mouth, but no movement of the extremities at this time. IMAGING AND LABORATORY DATA: Today, his white count is 24.97, hemoglobin 11.3, platelet count 247,000. On a 40% FiO2, his pH is 7.43, pCO2 is 36, PO2 is 85, HC03 is 24.8. Creatinine 1.1. Estimated GFR is greater than 60. Total bilirubin 0.4, direct bilirubin 0.1, AST 57, ALT 66, alkaline phosphatase 60. His pro B-natriuretic peptide is 6630. His sputum has previously grown a Pseudomonas aeruginosa. His blood cultures were negative on admission, and redrawn yesterday and are preliminary. Chest x-ray today shows minimally improved interstitial and alveolar opacities. ASSESSMENT AND PLAN: Mr. Meraz is status post cardiac arrest and is being treated for a Pseudomonas pneumonia. There is a mild decrease in his white count, as well as some improvement on the chest x-ray. He is receiving cefepime, which we will continue. These plans have been discussed with and recommended by Dr. Payne. COMORBIDITIES: for Mr. Meraz include recent cardiac arrest, atrial fibrillation, cardiomyopathy, cigarette smoking, and chronic pain syndrome. Dictated by VONDA Rosas for Ameya Payne MD cc: Ameya Payne MD MTDD
[2018-12-19] MEDS: MORPHINE IV PRN ×2 (11:53→16:07)
--- NOTE | 2018-12-19 13:05 | PROGRESS NOTE ---
DATE: 12/19/2018 The EEG raised concern for status epilepticus. He was started on levetiracetam. This morning, the mouth movement is less prominent and may be intermittent. He continues unresponsive. There is good lateral eye movement with passive head turning. Nothing else new neurologically. Discussed with family at the bedside. We might repeat EEG, check levetiracetam serum level, and add phenytoin. Of these, adding phenytoin seems most likely to bring quick seizure control, but there is concern for interaction with amiodarone. I will check with Cardiology about that. Thanks for asking Neurology to see Mr. Meraz. cc: Niurka Perez III, MD
[2018-12-19] MEDS ORDERED: CEREBYX IV ONE (13:58)
[2018-12-19] MEDS ORDERED: CEREBYX 1,500 MG in NS 100 ML IV ONE (14:00)
--- NOTE | 2018-12-19 14:48 | CARDIOLOGY PROGRESS NOTE ---
DATE: 12/19/2018 SUBJECTIVE: Mr. Meraz continues to be unresponsive. EEG performed suggested a focus of seizure. PHYSICAL EXAMINATION: Vital signs: Afebrile, heart rate 82, blood pressure 154/67. Generally: He is in no acute distress. Cardiovascular: He sounds to be in a regular rate and rhythm. He is in sinus based on telemetry. Lungs: He has no increased work of breathing. Abdomen: Soft, nontender, nondistended. He has no obvious organomegaly. PERTINENT DATA: EEG as detailed previously. His white count is 24, hematocrit 33, platelet count is 247,000. His sodium is 141, potassium 4.2, BUN 36, creatinine is 1.1. ProBNP is 6630. His intakes and outputs have been somewhat negative over the last couple of days. ASSESSMENT: Mr. Menard is a 63-year-old gentleman who suffered an [id number] ventricular fibrillation arrest, has a history of atrial fibrillation. PLAN: We will keep him on the amiodarone the time being. When he is able to reliably take oral medications, he may be switched over to oral. We have him on IV Lopressor. His blood pressure and his heart rate seem to be tolerating these medications and I will actually increase his Lopressor to 5 q.6. If there is a significant neurologic recovery, then he will likely need to be transferred over to [facility] for a secondary prevention ICD implant. cc: Zia Meade MD
--- NOTE | 2018-12-19 18:13 | PROGRESS NOTE ---
DATE: 12/19/2018 SUBJECTIVE: The patient is currently on the ventilator. He does not follow commands. He is having seizure activity. OBJECTIVE: Vital Signs: T-max 99.5, blood pressure 149/81, heart rate 89, respirations 19, O2 saturations 96% on the mechanical ventilator. General: This is a ikcnuytijpq-vtu-wluwqyoyg male currently on the ventilator. Heart: S1, S2 normal. Regular rate and rhythm. Lungs: Coarse breath sounds bilaterally. Abdomen: Positive bowel sounds. Soft, nontender, nondistended. Extremities: No edema, no cyanosis. Neurologic: The patient's eyes are open, but he does not follow commands. He is also having seizure activity. LABS: White blood cell count 24, hemoglobin 11, hematocrit 33, platelets 247. Sodium 141, potassium 4.2, chloride 107. CO2 is 22, BUN 36, creatinine 1.1, glucose 126. AST 57, ALT 66, alkaline phosphatase 60, albumin 3.3. Chest x-ray shows pulmonary edema. ASSESSMENT AND PLAN: 1. Acute hypoxemic respiratory failure. Continue with ventilatory support as directed by the boat outboard engine mechanic. 2. Pneumonia secondary to Pseudomonas. Continue on cefepime. 3. Status post cardiac arrest. Continue on amiodarone and supportive care. 4. Status epilepticus. The patient is now on Keppra and fosphenytoin. Further management as per the neurologist. 5. Encephalopathy. Unchanged. 6. Hypothyroidism. Continue on Synthroid. 7. Hypertension. Continue on Lopressor. 8. Transaminitis. Improved. 9. Nutrition. We will start nasogastric tube feeds today. 10. Leukocytosis. Slightly improved. We will continue to monitor closely. 11. Gastrointestinal prophylaxis. Continue on Protonix. 12. Deep vein thrombosis prophylaxis. The patient is on full-dose Lovenox. cc: Vivian Flor MD [facility]
[2018-12-20] MEDS: LOPRESSOR IV SCH ×5 (00:09→18:26)
[2018-12-20] MEDS: MORPHINE IV PRN (00:14)
[2018-12-20] MEDS: CORDARONE 360 MG/D5W 360 MG/200 ML IV.SOLN IV SCH ×4 (02:17→16:00)
[2018-12-20] MEDS: SOLU-MEDROL IV SCH ×3 (02:25→18:40)
[2018-12-20] MEDS: DUONEB (A & A) INH SCH ×6 (03:15→23:45)
[2018-12-20 04:47] LABS: ALLEN TEST YES; BLOOD TYPE ARTERIAL; HCO3-(ACT) 25.7 mmoll (20.0-26.0); METHB 0.7 % (0.0-1.5); O2(CT) 14.3 mL/dL (15.0-23.0); O2HB 96.4 % (95.0-99.0); PCO2(98.6) 37 mmHg (35-45); PO2(98.6) 83 mmHg (60-100); SAMPLE BLOOD; SAO2 100.2 % (95.0-100.0); SRATE 16 BPM; THB 10.5 g/dL (11.5-17.4); TVOL 600 mL; pH(98.6) 7.44 (7.35-7.45)
[2018-12-20 04:49] LABS: MODALITY VENTILATOR
[2018-12-20] MEDS: MAXIPIME 2 GM in NS 100 ML IV SCH ×3 (04:59→19:40)
[2018-12-20 05:39] LABS: BASO# 0.01 X1000 (0.0-0.2); HEMATOCRIT 33.9 % (42.0-52.0); HEMOGLOBIN 11.4 g/dL (14.0-18.0); IMM GRAN# 0.24 X1000 (0.0-0.04); IMM GRAN% 1.1 % (0.0-0.5); LYMPH# 1.17 X1000 (1.2-3.4); LYMPH% 5.5 % (20.5-51.1); MCH 29.5 PG (27-31); MCHC 33.6 g/dL (33-37); MCV 87.8 FL (81-99); MONO# 1.34 X1000 (0.11-0.59); MONO% 6.3 % (1.7-9.3); MPV 10.7 FL (7.4-10.4); NEUT# 18.49 X1000 (1.4-6.5); NEUT% 87.1 % (42.2-75.2); PLT 236 X1000 (130-400); RBC 3.86 XMIL (4.7-6.1); RDW 14.1 % (11.5-14.5); WBC 21.25 X1000 (4.8-10.8)
[2018-12-20 05:48] LABS: AGAP 10; BUN 40 mg/dL (8-22); CALCIUM 8.4 mg/dL (8.8-10.2); CHLORIDE 108 mmol/L (98-107); COSMO 293; ESTIMATED GFR > 60; GLUCOSE 143 mg/dL (70-104); POTASSIUM 4.4 mmol/L (3.5-5.1); SODIUM 141 mmol/L (136-145); TCO2 23 mmol/L (25-35)
[2018-12-20 06:12] LABS: LYMPHS 4 % (21-51); SEGS 96 % (42-75)
--- NOTE | 2018-12-20 06:18 | Diag Imaging Result Doc PS360 ---
EXAM: CHEST-PORTABLE HISTORY: Hypothermia protocol TECHNIQUE: Portable chest single view COMPARISON: 12/19/2018 FINDINGS: The lungs remain well expanded. Endotracheal and nasogastric tubes in good position. No cardiomegaly. Mild increased interstitial markings bilaterally. The pleural effusions identified. There is scarring in the right apex. IMPRESSION: No interval improvement. Electronically signed by Cezar Mac 12/20/2018 6:16 AM
[2018-12-20] MEDS: LOVENOX SUBQ SCH ×2 (06:19→18:26)
[2018-12-20] MEDS: PROTONIX IV SCH (06:19)
[2018-12-20] MEDS: SODIUM CHLORIDE 0.9% INJ SCH (06:19)
[2018-12-20] MEDS: SODIUM CHLORIDE 0.9% INJ PRN (06:20)
[2018-12-20] MEDS: SYNTHROID IV SCH (06:20)
[2018-12-20] MEDS: HUMULIN R SUBQ SCH ×4 (06:21→20:10)
[2018-12-20 07:44] LABS: MAGNESIUM 2.4 mg/dL (1.5-2.7); PHOSPHORUS 3.1 mg/dL (2.7-4.5); PREALBUMIN 17.3 mg/dL (20-40)
[2018-12-20 07:45] LABS: ALB/GLOB RATIO 1.1; ALBUMIN 3.2 g/dL (3.5-5.0); DIRECT BILIRUBIN 0.1 mg/dL (0.00-0.20); TOTAL BILIRUBIN 0.41 mg/dL (0.20-1.00); TOTAL PROTEIN 6.1 g/dL (6.3-8.3)
[2018-12-20] MEDS: KEPPRA 1,500 MG/NS 1,500 MG/100 ML IVPB IV SCH ×2 (08:37→20:10)
--- NOTE | 2018-12-20 13:50 | PROGRESS NOTE ---
DATE: 12/20/2018 SUBJECTIVE: Mr. Meraz continues unresponsive, intubated, mechanically ventilated. His phenytoin level was 15. Levetiracetam level is pending, but expect level is therapeutic with 1500 mg IV q. 12 hours and creatinine 1.0-1.1 in recent days. OBJECTIVE: On exam, there is irregular, less rhythmic and more intermittent movement around the mouth. There was some withdrawal with noxious stimulation over the feet, which I did not see before. Plantar response continues silent. Neck is supple. Lateral eye movements are good with passive head turning. Initially, there was right gaze, but after head turning, eyes remained conjugate and at midline. We will get EEG to see if there is ongoing subclinical seizure activity. Further plans will depend on that report. Discussed potential phenytoin/amiodarone interaction. Await Levetiracetam level drawn yesterday. I discussed current situation with family at the bedside. Thanks for asking Neurology to see Mr. Meraz. cc: MD JEYSON Araujo III
--- NOTE | 2018-12-20 15:14 | PROGRESS NOTE ---
DATE: 12/20/2018 SUBJECTIVE: The patient remains unresponsive on the ventilator. He is still having involuntary movement of his tongue. OBJECTIVE: Vital Signs: T-max 98.6, blood pressure 154/41, heart rate 80, respirations 21, and O2 saturation 94% on mechanical ventilator. Intake 1.9 L, output 930. General: This is a chronically ill-appearing elderly male currently unresponsive on the ventilator. Heart: S1, S2 normal. Regular rate and rhythm. Lungs: Coarse breath sounds bilaterally. Abdomen: Positive bowel sounds. Soft, nontender, and nondistended. Extremities: No edema. No cyanosis. No calf tenderness. Neurologic: The patient is unresponsive and continues to have fasciculations involving his tongue. LABORATORY: White blood cell count 21, hemoglobin 11, hematocrit 33, and platelets 236,000. ABG pH of 7.44, pCO2 37, PO2 83, and bicarb 25. Sodium 141, potassium 4.4, chloride 108, CO2 23, BUN 40, creatinine 1, and glucose 143. AST 35, ALT 55, and alkaline phosphatase 57. ASSESSMENT AND PLAN: 1. Acute hypoxemic respiratory failure. Continue with ventilatory support as directed by the feather curling machine operator. 2. Pneumonia secondary to pseudomonas. Continue on cefepime and bronchodilator therapy. 3. Seizures. Continue on Keppra. Further management as per the neurologist. 4. Status post cardiac arrest. Continue with supportive care and the amiodarone drip. 5. Hypothyroidism. Continue on Synthroid. 6. Encephalopathy. Unchanged. Continue to monitor for improvement. 7. Hypertension. Continue on Lopressor. 8. Transaminitis. Slightly improved. 9. Leukocytosis. Improved. Continue with antibiotic therapy. 10. Nutrition. Continue with tube feeds. 11. Deep vein thrombosis prophylaxis. Continue on Lovenox. 12. Gastrointestinal prophylaxis. Continue on Protonix. cc: MD JEYSON Galvan
[2018-12-20] MEDS ORDERED: CEREBYX IV SCH (17:15)
[2018-12-20] MEDS ORDERED: CEREBYX 300 MG in NS 50 ML IV ONE (18:00)
[2018-12-20] MEDS: CEREBYX 300 MG in NS 50 ML IV SCH (18:26)
--- NOTE | 2018-12-20 19:16 | EEG REPORT ---
DATE: 12/20/2018 EEG: INDICATION: This is a digitally recorded EEG done portably in the ICU on a 63-year-old patient with persistent coma, continued concern for seizure. FINDINGS: Today's record shows prominent burst suppression features. Bursts of higher amplitude activity are often composed of sharp waves and sharp and slow wave complexes. Periods of voltage suppression ranged from 1/2 to 3 seconds. No definite focal asymmetry noted. INTERPRETATION: Abnormal EEG because of burst suppression and persistent generalized epileptiform discharge. CORRELATION: This is consistent with anoxic brain injury. This pattern is consistent with seizure, but status epilepticus is not present. Compared to the prior record, this record contains more features of anoxic brain injury. cc: Niurka Perez III, MD [facility]
[2018-12-20] MEDS: MUCOMYST 20% INH SCH (19:41)
--- NOTE | 2018-12-20 20:36 | CARDIOLOGY PROGRESS NOTE ---
DATE: 12/19/2018 SUBJECTIVE: The patient follows commands but seems a little bit more responsive to physical stimuli. He is yawning and attempting to open his eyes. PHYSICAL EXAMINATION: Vital Signs: He is afebrile. His heart rate is 84, blood pressure 148/70. General: He is in no acute distress. Cardiovascular: He sounds to be in a regular rate and rhythm. I do not hear any obvious murmurs. He has no S3. He has no lower extremity edema. Chest: Sounds relatively clear with mechanical breath sounds heard throughout. Abdomen: Soft, nontender. LABORATORY DATA: BUN and creatinine are 40 and 1.0 respectively. White count is 21, hematocrit 33, platelet count 236. His sodium is 141, potassium 4.4. ASSESSMENT: Mr. Meraz is a 63-year-old gentleman with atrial fibrillation who suffered an out of rkw-sf-[id number] cardiac arrest with ventricular fibrillation noted on his outpatient tracing. PLAN: I will stop the IV amiodarone and place him on oral at 400 mg daily. Presently, we are awaiting the patient to wake up. He will need to be transferred over to [place] if he recovers significantly from a neurologic standpoint, so he can have implantation of a cardiac defibrillator. cc: Zia Meade MD
[2018-12-21] MEDS: LOPRESSOR IV SCH ×4 (00:58→18:06)
[2018-12-21] MEDS: SOLU-MEDROL IV SCH ×3 (01:29→18:06)
[2018-12-21] MEDS: DUONEB (A & A) INH SCH ×6 (03:39→23:14)
[2018-12-21] MEDS: MAXIPIME 2 GM in NS 100 ML IV SCH ×3 (04:15→20:20)
[2018-12-21 04:26] LABS: ALLEN TEST YES; BE 1.3 mmoll (-3.0-3.0); BLOOD TYPE ARTERIAL; HCO3-(ACT) 25.9 mmoll (20.0-26.0); METHB 1.4 % (0.0-1.5); O2(CT) 16.2 mL/dL (15.0-23.0); O2HB 95.4 % (95.0-99.0); PCO2(98.6) 35 mmHg (35-45); PO2(98.6) 85 mmHg (60-100); SAMPLE BLOOD; SAO2 98.1 % (95.0-100.0); SRATE 16 BPM; TVOL 600 mL; pH(98.6) 7.46 (7.35-7.45)
[2018-12-21 04:28] LABS: MODALITY VENTILATOR
[2018-12-21] MEDS: LOVENOX SUBQ SCH ×2 (05:24→18:06)
[2018-12-21] MEDS: PROTONIX IV SCH (05:25)
[2018-12-21] MEDS: SODIUM CHLORIDE 0.9% INJ SCH (05:25)
[2018-12-21] MEDS: CEREBYX 300 MG in NS 50 ML IV SCH ×2 (05:49→18:05)
[2018-12-21] MEDS: HUMULIN R SUBQ SCH ×4 (06:17→20:21)
[2018-12-21] MEDS: SYNTHROID IV SCH (06:18)
--- NOTE | 2018-12-21 06:24 | Diag Imaging Result Doc PS360 ---
EXAM: CHEST-PORTABLE HISTORY: Hypothermia protocol TECHNIQUE: Portable chest single view COMPARISON: 12/20/2018 FINDINGS: No change in the endotracheal tube or nasogastric tube. The lungs are well expanded. No cardiomegaly. No pleural effusions identified. There are increased interstitial markings/pulmonary edema similar to the prior exam. IMPRESSION: Stable chest. Electronically signed by Cezar Mac 12/21/2018 6:22 AM
[2018-12-21 06:32] LABS: BASO# 0.02 X1000 (0.0-0.2); BASO% 0.1 % (0.0-0.8); HEMATOCRIT 34.6 % (42.0-52.0); HEMOGLOBIN 11.6 g/dL (14.0-18.0); IMM GRAN# 0.44 X1000 (0.0-0.04); IMM GRAN% 1.8 % (0.0-0.5); LYMPH# 1.48 X1000 (1.2-3.4); LYMPH% 6.2 % (20.5-51.1); MCH 29.4 PG (27-31); MCHC 33.5 g/dL (33-37); MCV 87.6 FL (81-99); MONO# 2.33 X1000 (0.11-0.59); MONO% 9.7 % (1.7-9.3); MPV 11.1 FL (7.4-10.4); NEUT# 19.66 X1000 (1.4-6.5); NEUT% 82.2 % (42.2-75.2); PLT 243 X1000 (130-400); RBC 3.95 XMIL (4.7-6.1); RDW 14.1 % (11.5-14.5); WBC 23.93 X1000 (4.8-10.8)
[2018-12-21 06:47] LABS: AGAP 12; BUN 43 mg/dL (8-22); CALCIUM 8.8 mg/dL (8.8-10.2); CHLORIDE 103 mmol/L (98-107); COSMO 286; ESTIMATED GFR > 60; GLUCOSE 120 mg/dL (70-104); POTASSIUM 4.8 mmol/L (3.5-5.1); SODIUM 137 mmol/L (136-145); TCO2 22 mmol/L (25-35)
[2018-12-21] MEDS: MUCOMYST 20% INH SCH ×2 (08:04→19:36)
[2018-12-21] MEDS: CORDARONE PO SCH (08:28)
[2018-12-21] MEDS: KEPPRA 1,500 MG/NS 1,500 MG/100 ML IVPB IV SCH ×2 (08:28→20:20)
--- NOTE | 2018-12-21 08:43 | PROGRESS NOTE ---
DATE: 12/21/2018 SUBJECTIVE: Patient continues to be unresponsive on ventilator. According to nursing staff, he does not follow commands and also does not respond to painful stimuli. OBJECTIVE: Vital Signs: Temperature 99.8, heart rate 94, respiratory rate 28, blood pressure 168/105, and O2 saturation 100% on mechanical ventilator at FiO2 of 45%. General: This is a chronically ill-appearing 63-year-old male lying in bed, intubated and unresponsive. Neck: Supple. No JVD noted. No carotid bruits. No lymphadenopathy. No thyromegaly. HEENT: Head is normocephalic, atraumatic. There is a corneal reflex present. Sclera is red. Cardiovascular: S1 and S2 heard. No murmurs, gallops or rubs. Regular rate and rhythm. Respiratory: Minimal coarse breath sounds noted in both pulmonary bases. Patient is not using any accessory muscles or having work of breathing. The patient is intubated. Abdomen: Soft. Nondistended. Bowel sounds present. No organomegaly. Extremities: No clubbing, cyanosis or edema. Peripheral pulses present in both legs. Neurological: Patient continues to be unresponsive on ventilator. LABORATORY DATA: White cell count 23.83, hemoglobin 11.6, hematocrit 34.6, and platelets 243,000 with ABG that shows pH 7.46 with pCO2 35, PO2 85, and that was on ventilator at FiO2 of 40%. The BMP shows glucose 120 with BUN of 43. The total sleep time is 13.6. The x-ray from this morning showed stable chest. There are increased interstitial markings/pulmonary edema in comparing with prior exam. ASSESSMENT AND PLAN: 1. Acute hypoxemic respiratory failure. Because of mental status, patient is unresponsive, he remains on ventilator support. Pulmonary is following this patient for further recommendations. 2. Status post cardiac arrest secondary to ventricular fibrillation. Cardiology is following this patient. The patient has been on amiodarone drip. That has been changed to amiodarone 400 mg p.o. via NG tube. The patient is in sinus rhythm. We will continue to monitor. 3. Pseudomonal pneumonia. Patient is currently on cefepime in the unit. Infectious Disease is following this patient. We will follow recommendations. 4. Anoxic encephalopathy. Neurology is following this patient. They have done yesterday another EEG that is consistent with anoxic brain injury. They described a pattern that is consistent with seizure but, status epilepticus is not present. In comparing with prior record, this record contains more features of anoxic brain injury. In that regard, we will try to inform the family about this result. We will follow recommendations from Neurology. 5. Hypothyroidism. We will continue with Synthroid IV. 6. Nutrition. Patient receiving NG tube feedings. We will continue with the same. 7. Deep vein thrombosis prophylaxis. Patient is on Lovenox. 8. Gastrointestinal prophylaxis. Patient on Protonix. 9. Disposition. This is a 63-year-old male who had another episode of cardiac arrest. At this time, unfortunately it seemed that he developed anoxic encephalopathy. At this point, we are planning to meet with the daughter who is next of kin and our palliative care team. We will discuss about the prognosis and goals of care. In the meantime, we will continue with current management. cc: Mahesh Rao MD MTDD
--- NOTE | 2018-12-21 09:56 | PROGRESS NOTE ---
DATE: 12/21/2018 Mr. Meraz continues intubated, mechanically ventilated, unresponsive. There is good lateral eye movement with passive head turning. There is minimal pupil reaction to bright light. There continues to be irregular and arrhythmic tongue and lip movement. Limb tone is symmetric. There is minimal withdrawal with noxious stimulation over the feet. Plantar response is uncertain bilaterally. Neck is supple. Repeat EEG showed burst suppression consistent with anoxic brain injury. This carries very poor prognosis. I discussed that frankly with sister at the bedside. I would continue current management with fosphenytoin and levetiracetam, both at relatively high doses. Phenytoin level is 13.6 this morning. Levetiracetam level is pending from a few days ago. If either of those levels becomes significantly toxic, we can reduce dose. No other suggestion from Neurology standpoint. Depending on clinical course, we can cosider repeating the EEG and brain imaging later, but I do not think that would mold changer right now. Thanks for asking Neurology to see Mr. Meraz. cc: MD JEYSON Araujo III
--- NOTE | 2018-12-21 10:21 | INFECTIOUS DISEASE PROGRESS NO ---
DATE: 12/21/2018 PRESENT ILLNESS: The patient has a Pseudomonas pneumonia. He does have leukocytosis which could in part be due by his pneumonia but also the patient is on steroids which could be causing a leukocytosis as well. MEDICATIONS: The patient is receiving cefepime 2 g IV every 8 hours. This is day 3 of treatment with cefepime. PHYSICAL EXAMINATION: Vital Signs: Temperature is 100 degrees, pulse 81, respirations 30, blood pressure 126/56. General: This is an ill-appearing, middle-aged male. He is intubated and sedated. Head/eyes/ears/nose/throat: He has an orotracheal tube and a nasogastric tube in place. I did not see any white patches on his tongue. Neck: The patient did not seem to have any pain when I passively moved his neck. Lungs: There were bilateral rhonchi. Cardiovascular: Heart rate is regular. Abdomen: Soft and nontender. Neurologic: The patient did track with his eyes, but he did not follow request to move his extremities. LAB AND RADIOLOGY: Chest x-ray shows pulmonary venous congestion. CBC shows a white count of 23,930, hemoglobin 11.6, and platelet count 243,000. Blood gases show a pH of 7.46, a PO2 of 85, and a pCO2 of 35. Creatinine is 1.0. GFR is greater than 60. The patient's sputum culture grew Pseudomonas. The patient's procalcitonin was 0.27, which translates into saying that the patient is likely to have pneumonia. ASSESSMENT AND PLAN: The patient is status post cardiac arrest and he has a Pseudomonas pneumonia which I plan to continue treating with cefepime. The patient as mentioned above, does have a leukocytosis. Part of this could be due to the steroids the patient has on and part also could be due to his presumed Pseudomonas pneumonia. COMORBIDITIES: The patient had a cardiac arrest and, a fibrillation, cardiomyopathy, cigarette smoking, and chronic pain syndrome. cc: Ameya Payne MD
--- NOTE | 2018-12-21 14:45 | PULMONOLOGY PROGRESS NOTE ---
DATE: 12/21/2018 SUBJECTIVE: The patient is having periods of hyperventilation. He withdraws to pain. He does not respond to voice commands. OBJECTIVE: Vital Signs: Maximum temperature in the last 24 hours 99.7 degrees, blood pressure 120/56, heart rate 79, respiratory rate 24 oxygen saturation 93% on 55% FiO2. HEENT: Pupils are equal but sluggish. Oropharynx appears clear. Neck: Supple. Chest: Reveals prolonged expiratory phase. Cardiac: S1, S2, increased rate. Abdomen: Soft. Extremities: Reveal trace edema. IMAGING STUDIES: Chest x-ray reveals endotracheal tube in good position. No pleural effusions, mild increased vascular markings. LABORATORY DATA: White blood count 23.9, hemoglobin 11.6, platelet count 243,000. Sodium 137, potassium 4.8, chloride 103, bicarbonate 22, BUN 43, creatinine 1.0. Arterial blood gas, pH 7.46, pCO2 of 35, PO2 of 85. IMPRESSION: A 63-year-old with: 1. Acute hypoxemic respiratory failure. 2. Status post cardiopulmonary arrest. 3. Seizures. 4. Abnormal EEG consistent with anoxic encephalopathy. PLAN: 1. Continue daily weaning as tolerated. 2. Seizure control per Neurology. 3. Antibiotics for pseudomonal pneumonia per Infectious Disease. 4. Ongoing end of life discussions with the family. The patient has had a previous cardiac arrest and did well and recovered, but it does not appear that he will have a similar fate after this recurrent arrest. cc: Nicola Davis MD
[2018-12-21] MEDS: MORPHINE IV PRN (20:59)
[2018-12-22] MEDS: LOPRESSOR IV SCH ×4 (00:47→17:38)
[2018-12-22] MEDS: MORPHINE IV PRN ×4 (00:48→18:13)
[2018-12-22] MEDS: SOLU-MEDROL IV SCH ×3 (01:17→17:57)
[2018-12-22] MEDS: DUONEB (A & A) INH SCH ×6 (03:29→23:10)
[2018-12-22] MEDS: MAXIPIME 2 GM in NS 100 ML IV SCH ×3 (04:21→20:45)
[2018-12-22 04:41] LABS: ALLEN TEST YES; BE 1.3 mmoll (-3.0-3.0); BLOOD TYPE ARTERIAL; HCO3-(ACT) 25.9 mmoll (20.0-26.0); METHB 0.5 % (0.0-1.5); O2(CT) 18.3 mL/dL (15.0-23.0); O2HB 96.1 % (95.0-99.0); PCO2(98.6) 36 mmHg (35-45); PO2(98.6) 82 mmHg (60-100); SAMPLE BLOOD; SRATE 16 BPM; THB 13.5 g/dL (11.5-17.4); TVOL 600 mL; pH(98.6) 7.45 (7.35-7.45)
[2018-12-22 04:46] LABS: MODALITY VENTILATOR
[2018-12-22] MEDS: CEREBYX 300 MG in NS 50 ML IV SCH ×2 (05:29→17:38)
[2018-12-22] MEDS: LOVENOX SUBQ SCH ×2 (05:35→17:38)
[2018-12-22] MEDS: PROTONIX IV SCH (05:35)
[2018-12-22] MEDS: HUMULIN R SUBQ SCH ×4 (06:04→21:09)
[2018-12-22] MEDS: SYNTHROID IV SCH (06:06)
--- NOTE | 2018-12-22 07:08 | Diag Imaging Result Doc PS360 ---
EXAM: CHEST-PORTABLE 12/22/2018 HISTORY: Hypothermia protocol TECHNIQUE: AP portable at 0516 COMMENT: There is an endotracheal tube with its tip at the thoracic inlet. There is increased interstitial opacity generally and there may be COPD. There is apical pleural fibrosis. Compared to 12/21/2018 there has been no appreciable change. Compared to 12/20/2018 there has been improvement in the opacities in the lower lobes. IMPRESSION: Pulmonary edema and COPD. Electronically signed by Drwe Gonzalez 12/22/2018 7:05 AM
[2018-12-22 07:09] LABS: BASO# 0.03 X1000 (0.0-0.2); BASO% 0.1 % (0.0-0.8); EOS# 0.01 X1000 (0.0-0.7); HEMATOCRIT 34.1 % (42.0-52.0); HEMOGLOBIN 11.4 g/dL (14.0-18.0); IMM GRAN# 0.62 X1000 (0.0-0.04); IMM GRAN% 2.1 % (0.0-0.5); LYMPH% 6.3 % (20.5-51.1); MCH 29.5 PG (27-31); MCHC 33.4 g/dL (33-37); MCV 88.1 FL (81-99); MONO# 2.17 X1000 (0.11-0.59); MONO% 7.2 % (1.7-9.3); MPV 11.2 FL (7.4-10.4); NEUT# 25.27 X1000 (1.4-6.5); NEUT% 84.3 % (42.2-75.2); PLT 221 X1000 (130-400); RBC 3.87 XMIL (4.7-6.1); RDW 14.4 % (11.5-14.5)
[2018-12-22 07:24] LABS: ESTIMATED GFR > 60
[2018-12-22 07:27] LABS: AGAP 15; BUN 57 mg/dL (8-22); CALCIUM 8.1 mg/dL (8.8-10.2); CHLORIDE 105 mmol/L (98-107); COSMO 297; GLUCOSE 137 mg/dL (70-104); SODIUM 140 mmol/L (136-145); TCO2 20 mmol/L (25-35)
[2018-12-22 08:02] LABS: BANDS 1 % (0-1); LYMPHS 8 % (21-51); MONO 6 % (1-9); SEGS 83 % (42-75)
[2018-12-22 08:04] LABS: ANISOCYTOSIS 1+; HOWELL-JOLLY BODIES OCCASIONAL; LARGE PLATELETS OCCASIONAL
[2018-12-22] MEDS: MUCOMYST 20% INH SCH ×2 (08:21→19:08)
[2018-12-22] MEDS: CORDARONE PO SCH (09:04)
[2018-12-22] MEDS: KEPPRA 1,500 MG/NS 1,500 MG/100 ML IVPB IV SCH ×2 (09:05→21:08)
--- NOTE | 2018-12-22 11:32 | PROGRESS NOTE ---
DATE: 12/22/2018 SUBJECTIVE: Patient is still not responsive. Sometimes he open eyes spontaneously but does not track or follow commands. As per nursing staff, he has an episode of tachypnea, gets relief with morphine. No other issues noted. OBJECTIVE: Vital Signs: Temperature 99.8 degrees, heart rate 76, respiratory rate 32, blood pressure 136/57, O2 saturation 100% on mechanical ventilator that fell to 55%. General Examination: This is a chronically ill-appearing, 63-year-old male, lying in bed intubated, unresponsive. HEENT: Head is normocephalic, atraumatic. Corneal reflex is present. Sclera is red. Neck: No JVD noted. No carotid bruits. Cardiovascular exam: S1, S2 heard. No murmurs, gallops, or rubs. Regular rate and rhythm. Respiratory exam: Minimal coarse breath sounds and also transmitted sounds noted in both pulmonary golden. Patient is intubated. He is not using any accessory muscles or having work of breathing. Abdomen: Soft, nondistended. Bowel sounds present. No organomegaly. Extremities: No clubbing, cyanosis or edema. Peripheral pulses present in both legs. Neurological exam: Patient continues to be unresponsive. On a ventilator, does not respond to painful stimuli. LABORATORY DATA: 1. White cell count is 30, hemoglobin 11.4, hematocrit 34.1 platelets 221. ABG shows pH 7.45 with pCO2 36, PO2 82; that is on ventilator at FiO2 55%. BMP basically unremarkable, except elevation of glucose 137. 2. The total phenytoin is 13.6, and Keppra level is 29.2, which is within normal limits. ASSESSMENT AND PLAN: 1. Acute hypoxemic respiratory failure. Patient continues to be unresponsive; that is the reason why this patient is still on ventilator and now requiring FiO2 of 55%. Pulmonary is following this patient. We will follow recommendations. 2. Status post cardiac arrest secondary to ventricular fibrillation. The patient is receiving according to Cardiology amiodarone 400 mg via nasogastric tube. The patient is in sinus rhythm. 3. Pseudomonal pneumonia. Patient is currently on cefepime, but his white cell count got elevated again. I think at this point we are going to check another sputum culture and blood culture and see if we can isolate any bacteria. Considering that his white cell count has been up and down, we will continue to monitor, and at this point I am not going to change any antibiotics. Actually Infectious Disease is following with this patient. 4. Anoxic encephalopathy. That is what the last electroencephalogram showed. Dr. Perez from Neurology is following this patient, and he has informed the family about his prognosis. 5. Hypothyroidism. Will continue with Synthroid intravenously. 6. Nutrition: Patient is on nasogastric tube feedings. Will continue with the same management. 7. Deep vein thrombosis prophylaxis. Patient on Lovenox. 8. Gastrointestinal prophylaxis. Patient on Protonix. DISPOSITION: At this point, his daughter is next of kin. She is supposed to come today, but most likely on Monday, and will meet with the palliative care team to establish goals of care and code status. cc: Mahesh Rao MD
--- NOTE | 2018-12-22 17:01 | PULMONOLOGY PROGRESS NOTE ---
DATE: 12/22/2018 SUBJECTIVE: The patient does not respond to voice. He does withdraw to painful stimuli with a component of posturing. He has periods of what appears to be appropriate respiratory rate followed by periods of hyperventilation following stimulation. OBJECTIVE: Vital Signs: The patient has been afebrile for the last 24 hours. Blood pressure 114/49, heart rate 72, respiratory rate 26, oxygen saturation 100%. HEENT: Pupils are equal, appear reactive. Oropharynx appears clear. Neck: Supple. Chest: Reveals prolonged expiratory phase with occasional rhonchi. Cardiac: S1-S2. Abdomen: Soft. Extremities: Without edema. LABORATORIES: Chest x-ray reveals mild decreased infiltrates in the lung bases with mild vascular congestion and evidence of COPD. White blood count 30,000, hemoglobin 11.4, platelet count 221,000. Sodium 140, potassium 5.0, chloride 105, bicarbonate 20, BUN 57, creatinine 1.0. Arterial blood gas reveals a pH 7.45, pCO2 of 36, PO2 of 82. Microbiology reveals no new data. IMPRESSION: A 63-year-old with 1. Acute hypoxemic respiratory failure. 2. Status post cardiopulmonary arrest. 3. Anoxic encephalopathy. 4. Seizures. DISCUSSION: A 63-year-old with problems outlined above. He does not look significantly different than he did yesterday. PLAN: 1. Continue daily weaning. 2. Seizure control per Neurology. 3. Antibiotics per Infectious Disease. 4. Ongoing end of life discussions with the family. He may progress to a persistent vegetative state, but it does not appear that he will have a normal recovery. Time spent in critical care management: 30+ minutes cc: MD JEYSON Rubio
[2018-12-23] MEDS: LOPRESSOR IV SCH ×6 (01:01→23:28)
[2018-12-23] MEDS: SOLU-MEDROL IV SCH ×3 (01:02→17:16)
[2018-12-23] MEDS: DUONEB (A & A) INH SCH ×6 (03:41→23:21)
[2018-12-23 04:27] LABS: ALLEN TEST YES; BE -0.5 mmoll (-3.0-3.0); BLOOD TYPE ARTERIAL; HCO3-(ACT) 24.5 mmoll (20.0-26.0); METHB 1.2 % (0.0-1.5); O2(CT) 15.6 mL/dL (15.0-23.0); O2HB 96.9 % (95.0-99.0); PCO2(98.6) 32 mmHg (35-45); PO2(98.6) 115 mmHg (60-100); SAMPLE BLOOD; SRATE 16 BPM; THB 11.3 g/dL (11.5-17.4); TVOL 600 mL; pH(98.6) 7.46 (7.35-7.45)
[2018-12-23] MEDS: MAXIPIME 2 GM in NS 100 ML IV SCH ×3 (04:27→20:45)
[2018-12-23 04:28] LABS: MODALITY VENTILATOR
[2018-12-23] MEDS: PROTONIX IV SCH (05:14)
[2018-12-23] MEDS: SYNTHROID IV SCH ×2 (05:14→06:03)
[2018-12-23] MEDS: LOVENOX SUBQ SCH ×2 (05:15→17:16)
[2018-12-23] MEDS: CEREBYX 300 MG in NS 50 ML IV SCH ×2 (05:45→17:16)
[2018-12-23] MEDS: MORPHINE IV PRN ×2 (05:45→23:28)
[2018-12-23] MEDS: HUMULIN R SUBQ SCH ×4 (06:02→21:06)
--- NOTE | 2018-12-23 06:56 | Diag Imaging Result Doc PS360 ---
EXAM: CHEST-PORTABLE 12/23/2018 HISTORY: Hypothermia protocol TECHNIQUE: AP portable at 0519 COMMENT: There is an endotracheal tube with its tip at the thoracic inlet and an NG tube with its tip below the diaphragm. There is increasing alveolar opacity in the right lower lobe compared to 12/22/2018. The left base is somewhat clearer however. IMPRESSION: Waxing and waning pulmonary edema. Electronically signed by Drew Gonzalez 12/23/2018 6:54 AM
[2018-12-23] MEDS: MUCOMYST 20% INH SCH ×2 (07:53→19:42)
[2018-12-23] MEDS ORDERED: OFIRMEV 1000 MG/ISOTONIC SOLN 1,000 MG/100 ML BOTTLE IV PRN (08:08)
[2018-12-23 08:12] LABS: BASO# 0.02 X1000 (0.0-0.2); BASO% 0.1 % (0.0-0.8); HEMATOCRIT 33.7 % (42.0-52.0); HEMOGLOBIN 11.2 g/dL (14.0-18.0); IMM GRAN# 0.53 X1000 (0.0-0.04); IMM GRAN% 1.9 % (0.0-0.5); LYMPH# 1.47 X1000 (1.2-3.4); LYMPH% 5.3 % (20.5-51.1); MCH 29.3 PG (27-31); MCHC 33.2 g/dL (33-37); MCV 88.2 FL (81-99); MONO# 1.93 X1000 (0.11-0.59); MONO% 6.9 % (1.7-9.3); MPV 11.5 FL (7.4-10.4); NEUT# 23.83 X1000 (1.4-6.5); NEUT% 85.8 % (42.2-75.2); PLT 222 X1000 (130-400); RBC 3.82 XMIL (4.7-6.1); RDW 14.7 % (11.5-14.5); WBC 27.78 X1000 (4.8-10.8)
[2018-12-23] MEDS: KEPPRA 1,500 MG/NS 1,500 MG/100 ML IVPB IV SCH ×2 (08:13→21:06)
[2018-12-23] MEDS: CORDARONE PO SCH (08:13)
[2018-12-23 08:15] LABS: ESTIMATED GFR > 60
[2018-12-23 08:21] LABS: AGAP 13; BUN 59 mg/dL (8-22); CALCIUM 8.3 mg/dL (8.8-10.2); CHLORIDE 108 mmol/L (98-107); COSMO 295; CREATININE 0.9 mg/dL (0.7-1.2); GLUCOSE 119 mg/dL (70-104); POTASSIUM 5.2 mmol/L (3.5-5.1); SODIUM 139 mmol/L (136-145); TCO2 18 mmol/L (25-35)
--- NOTE | 2018-12-23 08:37 | PROGRESS NOTE ---
DATE: 12/23/2018 SUBJECTIVE: The patient continues to be nonresponsive. Upon my examination today, he responded to painful stimuli, withdrawing, and sometimes he open his eyes spontaneously but he does not track or follow commands. He continues to have episodes of tachypnea. No other issues noted. OBJECTIVE: Vital Signs: Temperature 98.8 degrees, heart rate 86, respiratory rate 32, blood pressure 155/64, O2 saturation 100% on mechanical ventilator at FiO2 of 55%. General Examination: This is a chronically ill-appearing, 63-year-old, male, lying in bed, intubated and unresponsive. HEENT: Head is normocephalic and atraumatic. Mucous membranes are dry. Coronary reflex is present. Neck: No JVD noted. No carotid bruits. No lymphadenopathy. Cardiovascular Examination: S1 and S2 heard. No murmurs, gallops, or rubs. Regular rate and rhythm. Respiratory Examination: Minimal coarse breath sounds and transmitted sounds noted in both pulmonary golden. Patient is intubated. He is not using any accessory muscles or having work of breathing. Abdomen: Soft., nontender, nondistended. Bowel sounds present. No organomegaly. Extremities: No clubbing, cyanosis, or edema. Peripheral pulses present in both legs. Neurological Examination: The patient continues to be unresponsive, on the ventilator. Laboratory Data: Pending at the time of my dictation. ASSESSMENT/PLAN: 1. Acute hypoxemic respiratory failure. That is the reason why this patient is still intubated, because of mental status. Now, the patient is requiring FiO2 55%. Pulmonary is following this patient. We will follow recommendations. 2. Status post cardiac arrest secondary to ventricular fibrillation. We are monitoring this patient closely. Cardiology is following this patient. Currently, he is receiving amiodarone 400 mg by nasogastric tube. He is in sinus rhythm now. 3. Pseudomonal pneumonia. Patient is on cefepime. His white cell count was very elevated yesterday in comparing with the day before. We are awaiting results of a CBC today. If we may need to adjust the doses of antibiotics, we will leave that decision to infectious disease. 4. Anoxic encephalopathy. Unfortunately, that is what the last EEG showed. Actually, Dr. Perez has informed the family about this finding. Apparently, we are awaiting for his daughter, who is his next of kin, to see goals of care and code status. 5. Nutrition. We will continue with nasogastric tube feedings. 6. Deep vein thrombosis prophylaxis. Patient is on Lovenox. 7. Gastrointestinal prophylaxis. Patient is on Protonix. 8. Disposition. We will continue to monitor this patient closely. The daughter is next of kin. We will talk to her and with palliative care as well, and we will go from there. cc: Mahesh Rao MD
[2018-12-23 08:57] LABS: LYMPHS 6 % (21-51); MONO 7 % (1-9); SEGS 85 % (42-75)
[2018-12-23 09:00] LABS: LARGE PLATELETS OCCASIONAL
[2018-12-23] MEDS ORDERED: SODIUM BICARBONATE 8.4% 100 MEQ in D5W 1,000 ML IV SCH (10:30)
--- NOTE | 2018-12-23 14:50 | PULMONOLOGY PROGRESS NOTE ---
DATE: 12/23/2018 SUBJECTIVE: The patient responds to painful stimuli. Does not respond to voice. He continues to have periods of tachypnea. OBJECTIVE: Vital Signs: Maximum temperature in the last 24 hours of 102.9 degrees. Current temperature 100.5 degrees. HEENT: Pupils have a downward gaze. Oropharynx appears clear. Neck is supple. Chest reveals coarse rhonchi bilaterally. Cardiac Examination: Regular rate. Normal S1, normal S2. Abdomen is soft. Extremities reveal trace edema. Laboratories: Chest x-ray reveals increased infiltrate at the right base with improvements on the left. White blood count 27.8, hemoglobin 11.2, platelet count 222,000. Arterial blood gas reveals a pH of 7.46, pCO2 of 32, pO2 of 115. Chemistry: Sodium 139, potassium 5.2, chloride 108, bicarbonate 18, BUN 39, creatinine 0.9. IMPRESSION: A 63-year-old with: 1. Acute hypoxemic respiratory failure. 2. Cardiopulmonary arrest. 3. Anoxic encephalopathy. 4. Seizures. 5. Fever. 6. Hyperchloremic metabolic acidosis. RECOMMENDATIONS: 1. Continue daily weaning. The patient failed a weaning trial again today. 2. Continue antibiotics per infectious disease. 3. Seizure control per neurology. 4. Repeat UA and sputum for C and S, given new fevers. 5. We will infuse 1 L of D5/bicarbonate solution for electrolyte abnormalities listed above. 6. The patient's overall prognosis is poor. Ongoing end of life discussions are in progress. Time spent in critical care: Greater than 30 minutes cc: Nicola Davis MD MTDD
[2018-12-23 14:52] LABS: URINE SOURCE CATH
[2018-12-23 14:57] LABS: BILIRUBIN URINE NEGATIVE (NEGATIVE); BLOOD URINE MODERATE (NEGATIVE); COLOR YELLOW; GLUCOSE URINE NEGATIVE (NEGATIVE); KETONE URINE NEGATIVE (NEGATIVE); LEUKOCYTES URINE NEGATIVE (NEGATIVE); NITRITE URINE NEGATIVE (NEGATIVE); PH URINE 5.5; PROTEIN URINE 70 mg/dL (NEGATIVE); SP GRAVITY URINE 1.028; TURBIDITY URINE HAZY (CLEAR); UROBILINOGEN URINE NORMAL (NORMAL)
[2018-12-23 15:22] LABS: UR EPITHELIAL CELLS <10 /HPF (<10); URINE BACTERIA NEGATIVE /HPF; URINE RBC TNTC /HPF (<10); URINE WBC <10 /HPF (<10)
[2018-12-23 15:23] LABS: URINE CASTS NONE SEEN; URINE CRYSTALS NONE SEEN; URINE YEAST NONE SEEN
[2018-12-24] MEDS: LOPRESSOR IV SCH ×2 (00:59→06:32)
[2018-12-24] MEDS: SOLU-MEDROL IV SCH ×2 (01:18→08:20)
[2018-12-24] MEDS: DUONEB (A & A) INH SCH ×2 (03:31→07:50)
[2018-12-24 04:37] LABS: ALLEN TEST YES; BLOOD TYPE ARTERIAL; HCO3-(ACT) 26.5 mmoll (20.0-26.0); METHB 1.1 % (0.0-1.5); MODALITY VENTILATOR; O2(CT) 14.7 mL/dL (15.0-23.0); PCO2(98.6) 35 mmHg (35-45); PO2(98.6) 127 mmHg (60-100); SAMPLE BLOOD; SRATE 16 BPM; THB 10.6 g/dL (11.5-17.4); TVOL 600 mL; pH(98.6) 7.47 (7.35-7.45)
[2018-12-24] MEDS: MAXIPIME 2 GM in NS 100 ML IV SCH (04:53)
[2018-12-24] MEDS: PROTONIX IV SCH ×2 (04:53→06:04)
[2018-12-24] MEDS: LOVENOX SUBQ SCH ×2 (04:54→06:03)
[2018-12-24] MEDS: SYNTHROID IV SCH ×2 (04:54→06:32)
[2018-12-24] MEDS: CEREBYX 300 MG in NS 50 ML IV SCH (06:03)
--- NOTE | 2018-12-24 06:11 | Diag Imaging Result Doc PS360 ---
EXAM: CHEST-PORTABLE HISTORY: Hypothermia protocol TECHNIQUE: Portable chest single view COMPARISON: 12/23/2018 FINDINGS: The lungs are well expanded. Pulmonary edema remains. No cardiomegaly. No change in endotracheal and nasogastric tubes which are in good position. No pleural effusions identified. There is scarring in the apices. Possible underlying pneumonia in the right lung base. IMPRESSION: No interval improvement. Electronically signed by Cezar Mac 12/24/2018 6:09 AM
[2018-12-24] MEDS: HUMULIN R SUBQ SCH (06:27)
[2018-12-24 06:29] LABS: BASO# 0.02 X1000 (0.0-0.2); BASO% 0.1 % (0.0-0.8); HEMATOCRIT 30.8 % (42.0-52.0); HEMOGLOBIN 10.3 g/dL (14.0-18.0); IMM GRAN# 0.41 X1000 (0.0-0.04); IMM GRAN% 1.6 % (0.0-0.5); LYMPH# 1.46 X1000 (1.2-3.4); LYMPH% 5.7 % (20.5-51.1); MCH 29.3 PG (27-31); MCHC 33.4 g/dL (33-37); MCV 87.5 FL (81-99); MONO# 1.47 X1000 (0.11-0.59); MONO% 5.8 % (1.7-9.3); NEUT# 22.06 X1000 (1.4-6.5); NEUT% 86.8 % (42.2-75.2); PLT 252 X1000 (130-400); RBC 3.52 XMIL (4.7-6.1); RDW 14.6 % (11.5-14.5); WBC 25.42 X1000 (4.8-10.8)
[2018-12-24 06:39] LABS: ESTIMATED GFR > 60
[2018-12-24 06:52] LABS: AGAP 10; BUN 62 mg/dL (8-22); CALCIUM 8.5 mg/dL (8.8-10.2); CHLORIDE 107 mmol/L (98-107); COSMO 299; CREATININE 0.8 mg/dL (0.7-1.2); GLUCOSE 142 mg/dL (70-104); POTASSIUM 4.9 mmol/L (3.5-5.1); SODIUM 140 mmol/L (136-145); TCO2 23 mmol/L (25-35)
--- NOTE | 2018-12-24 07:07 | PROGRESS NOTE ---
DATE: 12/24/2018 SUBJECTIVE: The patient continues to be nonresponse. He continues to have episodes of tachypnea. Sometimes he opens eyes spontaneously, but he does not track or follow commands. No acute issues noted as per nursing staff overnight. OBJECTIVE: Vital Signs: Temperature 98.4, heart rate 74, respiratory rate 21, blood pressure 130/55, O2 saturation 98% on mechanical ventilator. General: This is a chronically ill- appearing, 63-year-old, male, lying in bed, intubated and unresponsive. HEENT: Head is normocephalic and atraumatic. Mucous membranes dry. Corneal reflex present. Neck: No JVD noted. No carotid bruits. No lymphadenopathy. Cardiovascular: S1, S2 heard. No murmurs, gallops. Regular rate and rhythm. Respiratory: Minimal coarse breath sounds noted in both pulmonary bases. The patient is not using any accessory muscles or having work of breathing. The patient is intubated. Abdomen: Soft, nondistended. Bowel sounds present. No organomegaly. Extremities: No clubbing, cyanosis, or edema. Peripheral pulses present in both legs. Neurological: The patient continues to be unresponsive on the ventilator. LABORATORY DATA: Pending at the time of my dictation. ASSESSMENT AND PLAN: 1. Acute hypoxemic respiratory failure. The ABG basically shows stable gas exchange. He is on FiO2 of 50%. I think the reason why he is not extubated yet is because of mental status at this point. Will continue to follow recommendations from Pulmonary. 2. Status post cardiac arrest secondary to ventricular fibrillation. The patient is receiving 400 mg of amiodarone via nasogastric tube. He is in sinus rhythm now. 3. Pseudomonal pneumonia. The patient is on cefepime. White cell count was very elevated since the day before yesterday to yesterday. If CBC is elevated today, we may need to adjust antibiotics, but would leave that decision to Infectious Disease, Dr. Payne. 4. Anoxic encephalopathy. As we mentioned in our previous notes, that is what the last electroencephalogram showed. Actually, Dr. Perez informed sister about the poor prognosis. Today, daughter is supposed to be here in the hospital. Will plan to inform her about the current situation on her dad. 5. Nutrition status. The patient continues to be on nasogastric tube feedings. 6. Deep vein thrombosis prophylaxis. The patient is on Lovenox. 7. Gastrointestinal prophylaxis. The patient is on Protonix. 8. Disposition. At this point, will plan to meet with the daughter today, who is the next-of- kin, to talk about goals of care and code status. Addendum: Talked with whole family including daughter who is next of kin and everybody agreed to withdrawal of care. Will consult Palliative care, will extubate him and send him to a regular floor. Will continue to monitor patient closely. cc: Mahesh Rao MD MTDD
[2018-12-24] MEDS: MUCOMYST 20% INH SCH (07:50)
[2018-12-24] MEDS: KEPPRA 1,500 MG/NS 1,500 MG/100 ML IVPB IV SCH (08:20)
[2018-12-24] MEDS: CORDARONE PO SCH (08:21)
--- NOTE | 2018-12-24 10:01 | PROGRESS NOTE ---
DATE: 12/24/2018 LOCATION: ICU #[id number]. SUBJECTIVE: There is nothing new clinically. I discussed briefly with daughter at the bedside this morning. My impression is that he has sustained anoxic brain injury. Seizure appears to be controlled. I do not have any new suggestion. I would favor conservative management and consideration that support be withdrawn. Thank you for asking Neurology to see Mr. Meraz. cc: Niurka Perez III, MD
[2018-12-24] MEDS: MORPHINE IV PRN ×8 (12:47→23:39)
[2018-12-24] MEDS: ATIVAN IV PRN ×6 (13:40→23:39)
[2018-12-24] MEDS ORDERED: TRANSDERM-SCOP TD ONE (18:15)
[2018-12-24 20:02] VITALS: BP 157/52
[2018-12-25] MEDS: MORPHINE IV PRN ×4 (01:06→05:17)
[2018-12-25] MEDS: ATIVAN IV PRN ×4 (01:08→05:19)
[2018-12-25] MEDS: ATROPINE 1 % OPHTH SOLN SL PRN ×2 (01:16→05:17)
--- NOTE | 2018-12-25 15:24 | DISCHARGE SUMMARY ---
ADMISSION DATE: 12/15/2018 DISCHARGE DATE: 12/25/2018 DISCHARGE DIAGNOSES: The patient unfortunately yesterday from the following diagnoses: 1. Status post cardiac arrest secondary to ventricular fibrillation. 2. Known ischemic cardiomyopathy. 3. Acute hypoxemic, hypercarbic respiratory failure, on a ventilator. 4. Chronic obstructive pulmonary disease exacerbation. 5. Cardiogenic versus septic shock. 6. Transaminitis. 7. Hyperglycemia. 8. Severe anoxic encephalopathy. PROCEDURES: 1. Chest x-ray done on admission showed endotracheal tube in good position with the tip 4 cm above the chanel, and pulmonary fibrosis. 2. Head CT done on admission showed no hemorrhage. 3. Echocardiogram, Doppler showed ejection fraction of 60-65% with no pericardial effusion, estimated EF of 60-65%. 4. EEG done 12/15/2018 showed seizures as the reason for all movements and possible explanation for his persistent poor responsiveness. 5. EEG done on 12/20/2018 showed findings consistent with anoxic brain injury. This pattern is consistent with seizure but status epilepticus is not present. Compared with prior record, this record contains more features of anoxic brain injury. HOSPITAL COURSE: This is a 63-year-old, male with a past medical history of cardiac arrest in August 2018, atrial fibrillation, hypertension, tobacco abuse, and alcohol dependence. The patient was brought to the emergency department because he experienced cardiac arrest again. He was brought to the emergency department. He was provided shock for ventricular fibrillation. He was shocked twice apparently. The patient was admitted to the hospital to the intensive care unit. We found out that he had pseudomonal pneumonia with elevated white cell count and fever that was going on even though he was receiving broad-spectrum antibiotics. Patient was on the ventilator, was followed by pulmonary during all his whole hospitalization. We were weaning off oxygen but, unfortunately, we were not able to extubate him because of mental status. Also, pneumonia was treated even though his white cell count was very elevated. The patient's atrial fibrillation was managed with amiodarone. Unfortunately, his clinical conditions were not improving correctly. The main issue became the anoxic encephalopathy because the patient persisted to be encephalopathic and confused. We ordered two EEGs and finally that was the conclusion, that he had a severe brain anoxic encephalopathy. Because of lack of response to the therapy, family decided to withdraw of care. He was sent to a private room. Unfortunately, this patient today at 5:26 a.m. cc: Mahesh Rao MD
== END 2018-12-25 05:26 | disposition expired | DRG 870 ==
LOC: P.ED 11:08 → MERGE 11:08 → ICU 15:05 → SUATTDRO 15:05 → ICU 16:42 → 3N 12-24 14:47
PROVIDERS: ATTEND Internal Medicine